=== PATIENT | male | born 1965 | race Caucasian/White ===

== ENCOUNTER → 2018-10-30 06:57 | Outpatient (CLI) | payer SELFPAY ==
--- NOTE | 2018-10-30 07:14 | CT_ITS ---
STUDY: CT MAXILLOFACIAL SINUSES REASON FOR EXAM: Male, 52 years old. Sinusitis left-sided unable to breathe out of left side of nose RADIATION DOSAGE (If Supplied By Facility): CTDIvol = ( 33.06 ) mGy, DLP = ( 771.87 ) mGycm TECHNIQUE: The patient was scanned in a multi detector CT scanner. High resolution axial imaging was performed without the administration of intravenous contrast material. Sagittal and coronal images were reconstructed. Individualized dose optimization techniques were used for this CT. COMPARISON: None. FINDINGS: Cervical, pharyngeal soft tissues unremarkable. Procedure Rn space soft tissues normal. Superficial facial soft tissues normal. Orbital contents normal. Cervical degenerative disc disease prominent at C4-C5, prominent right uncovertebral joint hypertrophy contributing to moderately severe right foraminal stenosis with risk of impingement upon the exiting right C5 nerve root. Correlate for any symptoms of cervical radiculopathy. Craniofacial osseous structures normal. Limited evaluation of the brain reveals no acute process. Right maxillary sinus: Normal. Sphenoid sinuses: Normal. Minimal mucoperiosteal thickening ethmoid sinuses and base of left frontal sinus. Right frontal sinus normal. Mucous retention cysts and mucoperiosteal thickening at the base of the left maxillary sinus. Mild mucoperiosteal thickening narrows the left maxillary sinus ostium. Mildly comparison thickening narrows the left frontal sinus ostium. There is mild leftward bowing and spurring of the nasal septum. This contributes to mild narrowing of the left nasal passage. Normal appearance of the turbinates. Mastoid air cells and middle ear cavities clear. CT/Sinus/Facial Bone IMPRESSION: Paranasal sinus disease affecting the left maxillary sinus and left frontal sinus with narrowing of the sinus ostia secondary to mucoperiosteal thickening. Leftward bowing and spurring of the nasal septum contributes to narrowing of the anterior 3rd of the left nasal passage. Narrowing of the passage and compression of the normal-appearing turbinates would limit breathing through the left nostril. Electronically Signed: David Saucedo MD at 9:42 EDT Tel , Service support ,
== END ==
PROVIDERS: Family Provider Family Medicine; PCP Family Medicine; Referring Provider Otolaryngology Otolaryngology/Facial Plastic Surgery; Visit Provider Otolaryngology Otolaryngology/Facial Plastic Surgery
DX: J32.9 Chronic sinusitis, unspecified (principal); J33.9 Nasal polyp, unspecified
CPT/HCPCS: 70486

== ENCOUNTER 2018-11-06 10:49 | Observation (INO) | payer SELFPAY ==
[2018-11-06 10:50] VITALS: BP 144/88; PULSE 119; RESP 18; TEMP 36.8; O2SAT 98; BMI 23.7
[2018-11-06 11:21] LABS: Hematocrit 37.8 % (40-54); Mean Corp Hgb Conc 34.4 g/gl (32-36); Mean Corpuscular Hgb 28.8 pg (27.0-32.0); Mean Corpuscular Volume 83.8 fL (80-94); Platelet Count 507 K/mm3 (150-450); RBC Distribution Width CV 12.3 % (11.6-14.6); RBC Distribution Width SD 36.9 fl (35.1-43.9); Red Blood Count 4.51 M/mm3 (4.6-6.2); Scan Indicated on CBC? Y/N NO; White Blood Count 19.8 K/mm3 (4.4-11.0)
[2018-11-06 11:38] LABS: ALB/GLOB Ratio 0.6 RATIO (0.9-2.4); AST(SGOT) 47 U/L (15-37); Alanine Aminotransfer ALT/SGPT 103 U/L (16-61); Albumin, Serum 2.7 g/dL (3.2-5.0); Alkaline Phosphatase 71 U/L (45-117); Anion Gap 8 (5-15); BUN 8 mg/dL (7-18); Calcium,Total 8.5 mg/dL (8.5-10.1); Chloride 89 mmol/L (98-107); EST Glomerular Filtration Rate 109 mL/min (>60); Est Glom Filt Rate - Afr Amer 132 mL/min (>60); Estimated Creatinine Clearance 117.66 ml/min; Globulin 4.9 g/dL (2.2-4.2); Glucose 125 mg/dL (74-106); Potassium 3.9 mmol/L (3.5-5.1); Protein, Total 7.6 g/dL (6.4-8.2); Sodium Level 127 mmol/L (136-145)
--- NOTE | 2018-11-06 12:11 | ED.VIS.GEN ---
History of Present Illness Chief Complaint: General Illness Informant: Patient Onset: Days - 4 Current Severity: Moderate Maximum Severity: Moderate Narrative: Patient presents with nasal pain, he has been on 2 antibiotics for nasal septal cellulitis and sinusitis. He has no chest pain shortness of breath fever or chills. He has had the cellulitis for a few weeks and just got treatment 4 days ago. Pain is mild to moderate, is worse at night. Past Medical History - Allergies and Home Meds Allergies/Adverse Reactions: Allergies No Known Allergies Allergy (Verified 11/06/18 11:03) Primary Care Physician: Ayden Portillo DO [Primary Care Provider] - Past Medical History: - - Hypertension Surgical History: noncontributory Smoking Status: Never smoker Review of Systems General: Denies: Fever Eyes: Denies: Visual changes - bilaterally ENT: Reports: - - As in HPI Cardiovascular: Denies: Chest pain Respiratory: Denies: Dyspnea Gastrointestinal: Denies: Abdominal pain, Nausea Skin: Reports: Rash Neurological: Denies: Weakness Psych: Denies: Depression Hematologic: Denies: Easy bruising Physical Exam Vital Signs/Narrative: Vital Signs Temp Pulse Resp BP Pulse Ox 11/06/18 10:50 98.2 F 119 H 18 144/88 H 98 General: Well nourished, Well developed ENT: Sinus tenderness, - - Patient has nasal septal enlargement, quite red Cardiovascular: Regular rate, Tachycardia Respiratory: No distress Abdomen: Soft Back: Nontender Extremities: No edema Skin: Normal color Neurological: Alert Psychological: Normal affect Diagnostic/Tx/Re-eval - Medical Decision Making Patient has leukocytosis, he is tachycardic I will admit antibiotics were started. Lactic acid is pending Admit stable condition ED Disposition - Plan for ED Patient: Referrals: Ayden Portillo DO [Primary Care Provider] -
[2018-11-06 12:38] VITALS: BP 151/86; PULSE 108; RESP 15
[2018-11-06 12:38] LABS: Lactic Acid 1.5 mmol/L (0.4-2.0)
[2018-11-06] MEDS: 0.9% Normal Saline 1,000 ML 999 ML IV ×3 (13:06→15:37)
[2018-11-06 13:39] VITALS: BMI 23.6
[2018-11-06 13:40] VITALS: BP 130/81; PULSE 100; RESP 18; TEMP 37.2; O2SAT 99
--- NOTE | 2018-11-06 14:07 | PCM.HP.STD ---
Problem List (1) Acute sinusitis Status: Acute History of Present Illness Date of Admission: 11/06/18 Chief Complaint: rhinorrhea The patient is a 52 year old M with no pmhx who presented to the ER with c/o rhinorrhea. He has been having sinus issues for 1 month. Initially he started having rinorrhea that was watery like tears with small amounts of blood. He has had increased pressure and a fever of 100 degrees at home. He went to his PCP and was placed on amoxicillin and pseudoephedrine. He took this for ten days with no relief, and then went to see Dr. Parker (ENT) who placed him on augmentin. He still has had no relief after 7 days of augmentin. In the ER he was found to be tachycardic with a WBC count of 19k. He was placed on IV clinda and admitted to the [facility] floor. ROS: no vision change, no headache, no cough, no hearing change or ear pain, no sore throat, no SOB, no nausea/vom/diarrhea. [] Past Medical History Allergies No Known Allergies Allergy (Verified 11/06/18 11:03) Home Medications: Ambulatory Orders Medication Instructions Recorded Amoxicillin/Potassium Clav 1 ea PO BID 11/06/18 [Augmentin 875-125 Tablet] Surgical History: noncontributory Psychiatric History: No pertinent psych hx Lives: Spouse/ Significant Other Smoking Status: Never smoker Tobacco Use: Non-smoker Alcohol: Rare Drugs: None Review of Systems Constitutional: Reports: Fever, Fatigue. Denies: Chills, Weight Change Eyes: Denies: Drainage, Vision Change HEENT: Reports: Nasal bleeding, Nasal Congestion, Sinus Congestion. Denies: Difficulty Hearing, Difficulty Swallowing, Hard of Hearing, Head Aches, Hearing Changes, Sinus Drainage, Sore Throat, Visual Changes Cardiovascular: Denies: Chest Pain, Palpitations Respiratory: Denies: Cough, Shortness of breath at rest, Sputum production Gastrointestinal: Denies: Abdominal Pain, Nausea, Vomiting Genitourinary: Denies: Dysuria Musculoskeletal: Denies: Joint Pain, Joint Tenderness Skin: Denies: Rash, Wounds Neurological: Denies: Numbness, Tingling, Focal weakness Psychiatric: Denies: Anxiety, Depression, Homicidal Ideations, Suicidal Ideations Hematologic/ Lymphatic: Denies: Easy Bruising, Easy Bleeding VTE Information - Inpt Only VTE Present on Admission: No VTE Mechan Device Prophylaxis: None VTE Pharm Prophylaxis ordered?: No Reason prophylaxis not ordered:: Procedure Not Indicated Patient Problems: Active and Suspected Problems Acute sinusitis (Acute) - Physical Exam General: Alert, Oriented x3, Cooperative HEENT: Atraumatic, PERRLA, EOMI, Normocephalic Neck: Supple, No JVD, Negative Carotid Bruits Lungs: Clear to auscultation, Normal air movement Cardiovascular: Regular rate, No murmurs Abdomen: Bowel Sounds Present, Soft, Non Tender Extremities: No edema, Capillary Refill Less than 3 Seconds Skin: No rashes, No breakdown Musculoskeletal: No Tenderness to Palpation of Joints or Extremities Neurological: Cranial nerves II-XII grossly intact Psych/Mental Status: Normal Affect, Appropriate Vital Signs Temp Pulse Resp BP Pulse Ox 98.9 F 100 18 130/81 H 99 11/06/18 13:40 11/06/18 13:40 11/06/18 13:40 11/06/18 13:40 11/06/18 13:40 Oxygen Delivery Method Room Air Weight: 169 lb 1.513 oz Body Mass Index (BMI) 23.6 Laboratory Tests Past 24 Hrs 11/06/18 11/06/18 11/06/18 11:18 11:18 12:10 WBC 19.8 H RBC 4.51 L Hgb 13.0 Hct 37.8 L MCV 83.8 MCH 28.8 MCHC 34.4 RDW 12.3 RDW Differential 36.9 Plt Count 507 H MPV 8.0 Sodium 127 L Potassium 3.9 Chloride 89 L Carbon Dioxide 30.0 Anion Gap 8 BUN 8 Creatinine 0.80 Estim Creat Clear Calc 117.66 Est GFR (MDRD) Af Amer 132 Est GFR (MDRD) Non-Af 109 BUN/Creatinine Ratio 10.0 Glucose 125 H Lactic Acid 1.5 Calcium 8.5 Total Bilirubin 0.50 AST 47 H ALT 103 H Alkaline Phosphatase 71 Total Protein 7.6 Albumin 2.7 L Globulin 4.9 H Albumin/Globulin Ratio 0.6 L Assessment/Plan All Active Problems Acute sinusitis (Acute) 1. Acute sinusitis with failed outpatient therapy - failed 10 days amoxicillin and 7 days of augmentin. No won IV clinda. Tachy and with high white count, but clinically the patient is not septic as his symptoms are mild and he appears completely nontoxic. MRSA swab nose. If no improvement c/s ENT for sinoscopy. -supportive care with mucinex, rhinocort, sudafed, netti-pot, tylenol, ibuprofen. DVT ppx: early ambulation DC planning: home tomorrow if improved with ENT f/u on Thursday - already has appt This patient was seen by Guille Richards PA-C under the supervision of Dr. Tapia.
[2018-11-06] MEDS: Fluticasone 0.05% 1 SPRAY NASAL.SRY NASAL (15:38)
[2018-11-06] MEDS: guaiFENesin 1,200 MG Tablet 1200 MG PO ×2 (15:39→22:13)
[2018-11-06] MEDS: Ibuprofen 400 MG Tablet PO ×2 (16:13→22:12)
[2018-11-06 18:02] VITALS: BP 134/80; PULSE 105; RESP 16; TEMP 37.2; O2SAT 97
[2018-11-06 18:27] LABS: M R Staph aureus DNA By PCR Negative (Negative); Probe Check PASS; Specimen Processing Control PASS
[2018-11-06 20:29] VITALS: BP 129/71; PULSE 105; RESP 18; TEMP 37.6; O2SAT 95
[2018-11-07] MEDS: Ibuprofen 400 MG Tablet PO ×3 (02:35→12:49)
[2018-11-07 02:42] VITALS: BP 105/67; PULSE 109; RESP 18; TEMP 37.3; O2SAT 96
[2018-11-07 06:32] LABS: Absolute Lymphocyte Count 0.91 X10^3/ul (0.83-4.51); Absolute Neutrophil Count 15.3 X10^3/uL (2.0-7.7); Basophil# 0.02 X10^3/uL; Basophil% 0.1 % (0-1); Eosinophil# 0.19 X10^3/uL; Hematocrit 33.9 % (40-54); Hemoglobin 11.3 g/dl (13.0-16.5); Lymphocyte # 0.91 X10^3/ul (4.0); Lymphocyte % 4.9 % (19-41); Mean Corp Hgb Conc 33.3 g/gl (32-36); Mean Corpuscular Hgb 28.6 pg (27.0-32.0); Mean Corpuscular Volume 85.8 fL (80-94); Mean Platelet Vol. 8.8 fl (6.2-12.0); Monocyte# 2.09 X10^3/uL; Monocyte% 11.2 % (0-10); Neutrophil # 15.28 X10^3/uL (2.7-7.7); Platelet Count 476 K/mm3 (150-450); RBC Distribution Width CV 12.4 % (11.6-14.6); RBC Distribution Width SD 38.3 fl (35.1-43.9); Red Blood Count 3.95 M/mm3 (4.6-6.2); White Blood Count 18.6 K/mm3 (4.4-11.0)
[2018-11-07 06:33] LABS: Differential Indicated SCAN CRITERIA MET; POSITIVE COUNT NO; POSITIVE DIFFERENTIAL YES; POSITIVE MORPHOLOGY NO
[2018-11-07 06:40] LABS: ALB/GLOB Ratio 0.5 RATIO (0.9-2.4); AST(SGOT) 69 U/L (15-37); Alanine Aminotransfer ALT/SGPT 116 U/L (16-61); Albumin, Serum 2.1 g/dL (3.2-5.0); Alkaline Phosphatase 68 U/L (45-117); Anion Gap 8 (5-15); BUN 7 mg/dL (7-18); BUN/Creat Ratio 9.6 RATIO (10-20); Calcium,Total 7.9 mg/dL (8.5-10.1); Chloride 93 mmol/L (98-107); Creatinine, Serum 0.73 mg/dL (0.70-1.30); EST Glomerular Filtration Rate 120 mL/min (>60); Est Glom Filt Rate - Afr Amer 146 mL/min (>60); Estimated Creatinine Clearance 128.94 ml/min; Globulin 4.1 g/dL (2.2-4.2); Glucose 131 mg/dL (74-106); Protein, Total 6.2 g/dL (6.4-8.2); Sodium Level 127 mmol/L (136-145)
[2018-11-07 07:47] VITALS: BP 120/80; PULSE 106; RESP 18; TEMP 36.8; O2SAT 97
[2018-11-07] MEDS: Fluticasone 0.05% 1 SPRAY NASAL.SRY NASAL (10:31)
[2018-11-07] MEDS: guaiFENesin 1,200 MG Tablet 1200 MG PO (10:31)
--- NOTE | 2018-11-07 11:23 | PCM.DC ---
- Discharge Diagnoses Current Active Problems: Current Active and Chronic Problems Acute sinusitis (Acute) You will use the following diet at home:: No restrictions, Other - avoid alcohol Your food should be the consistency of: Regular Your liquids should be the consistency of: Regular/Thin Discharge Activity: Return to Normal Activity Additional Instructions: Avoid tylenol/acetaminophen. Use NETIPOT or equivalent nasal flush daily. Follow instructions on packaging. Talk to your primary care physician about having your liver function test repeated. Allergies/Adverse Reactions: Allergies No Known Allergies Allergy (Verified 11/06/18 11:03) Medications to take at Discharge Cefdinir [Omnicef [equiv]] 300 mg PO Q12H #18 cap 11/07/18 Fluticasone 0.05% [Flonase Nasal [place]] 1 spray NASAL DAILY nasal.sry 11/07/18 Guaifenesin [Mucinex] 1,200 mg PO BID tablet 11/07/18 Ibuprofen [Motrin] 400 mg PO Q4H PRN PRN tablet 11/07/18 Menthol [Bengay Vanishing Scent] 1 applic TOPICAL TID PRN PRN tube 11/07/18 Pseudoephedrine [Sudafed] 30 mg PO Q6H PRN PRN tablet 11/07/18 The following prescriptions were given: Cefdinir [Omnicef [equiv]] 300 mg PO Q12H #18 cap Transmission Status: Pending to [facility]/pharmacy #[id number] Primary Care Physician: Ayden Portillo DO [Primary Care Provider] - Please follow up with your Primary Care Physician in: 1-2 weeks Test Results: Test results from this visit will be discussed in further detail at your follow-up appointment, if applicable. Please Follow Up With: Kameron Parker MD When: 11/08/2018 Proposed Discharge Date: 11/07/18
--- NOTE | 2018-11-07 11:46 | PCM.DC.SUM ---
Discharge Date and Diagnosis - Problem List Patient Problems: Active and Suspected Problems Acute sinusitis (Acute) Date of Admission: 11/06/18 Date of Discharge: 11/07/18 - Primary Discharge Diagnosis Active and Suspected Problems Acute sinusitis (Acute) with failed outpatient therapy elevated LFTs unclear etiology Hospital Course and Treatment Imaging Results: CT/Sinus/Facial Bone IMPRESSION: Paranasal sinus disease affecting the left maxillary sinus and left frontal sinus with narrowing of the sinus ostia secondary to mucoperiosteal thickening. Leftward bowing and spurring of the nasal septum contributes to narrowing of the anterior 3rd of the left nasal passage. Narrowing of the passage and compression of the normal-appearing turbinates would limit breathing through the left nostril. Operations: None Procedures: None Summary of Care Provided: Hospital Course: The patient is a 52 year old M with no significant past medical history who presented to the emergency room with complaints of a sinus infection that would not heal-symptoms primarily rhinorrhea and sinus pressure. He had been treating it for about 1 month-he initially had been placed on amoxicillin and Sudafed by his PCP and did not have any relief after 10 days of therapy. He then went to see Dr. Parker who placed him on Augmentin which he took for 7 more days with no relief. He came to the emergency room and was found to have an elevated white count of 19,000 and mild tachycardia. Also incidentally he had mild hyponatremia with sodium of 127 and mildly elevated LFTs with an AST of 47 and an ALT of 103-this is of unclear etiology. He had a CT scan of his sinuses as an outpatient-I have included the report above - which showed paranasal sinus disease affecting the left maxillary and left frontal sinus disease with some structural changes as noted above. Patient was admitted for observation to the medical surgical unit and started on intravenous clindamycin and for supportive care Mucinex, Sudafed, Flonase, ibuprofen, and Tylenol. The following morning the patient reported that his symptoms have vastly improved overnight with reduction in his rhinorrhea and sinus pressure. Furthermore he was able to breathe through his left nare which he had previously been unable to do. He had a nasal MRSA swab which was negative. He was transitioned to Omnicef and will complete 10 days of total antibiotic therapy. I have also advised him to continue the supportive care however to avoid Tylenol as we do not know why his LFTs are mildly increased. I advised him to have the LFTs rechecked as an outpatient. He has a follow-up appointment with ENT tomorrow morning and of it I have strongly advised him to keep this appointment. I have also instructed him on the use of [place] Yanez and advised him to use these horn equivalent daily. He was discharged home in stable condition. He will follow-up with his PCP in 1 to 2 weeks as well as with ENT as above. This patient was seen by Guille Richards PA-C under the supervision of Doctor Willie. [] Patient Problems: Active and Suspected Problems Acute sinusitis (Acute) - Physical Exam General: Alert, Oriented x3, Cooperative HEENT: Atraumatic, PERRLA, EOMI, Normocephalic Neck: Supple, No JVD, Negative Carotid Bruits Lungs: Clear to auscultation, Normal air movement Cardiovascular: Regular rate, No murmurs Abdomen: Bowel Sounds Present, Soft, Non Tender Extremities: No edema, Capillary Refill Less than 3 Seconds Skin: No rashes, No breakdown Musculoskeletal: No Tenderness to Palpation of Joints or Extremities Neurological: Cranial nerves II-XII grossly intact Psych/Mental Status: Normal Affect, Appropriate, Alert and oriented to time, place, person, mood and affect Vital Signs Temp Pulse Resp BP Pulse Ox 98.2 F 106 H 18 120/80 97 11/07/18 07:47 11/07/18 07:47 11/07/18 07:47 11/07/18 07:47 11/07/18 07:47 Oxygen Delivery Method Room Air Weight: 169 lb 1.513 oz Body Mass Index (BMI) 23.6 Intake and Output for Last 24 Hours 11/05/18 11/06/18 11/07/18 23:59 23:59 23:59 Intake Total 2625 / 2625 312 / 312 Balance 2625 / 2625 312 / 312 Laboratory Tests Past 24 Hrs 11/06/18 11/06/18 11/07/18 12:10 14:20 05:20 WBC 18.6 H RBC 3.95 L Hgb 11.3 L Hct 33.9 L MCV 85.8 MCH 28.6 MCHC 33.3 RDW 12.4 RDW Differential 38.3 Plt Count 476 H MPV 8.8 Immature Gran % (Auto) 0.800 Neut % (Auto) 82.0 H Lymph % (Auto) 4.9 L [place] % (Auto) 11.2 H Eos % (Auto) 1.0 Baso % (Auto) 0.1 Absolute Neuts (auto) 15.3 H Absolute Lymphs (auto) 0.91 Total Counted Not Reportable Diff Path Review May foll Sodium Potassium Chloride Carbon Dioxide Anion Gap BUN Creatinine Estim Creat Clear Calc Est GFR (MDRD) Af Amer Est GFR (MDRD) Non-Af BUN/Creatinine Ratio Glucose Lactic Acid 1.5 Calcium Total Bilirubin AST ALT Alkaline Phosphatase Total Protein Albumin Globulin Albumin/Globulin Ratio MRSA (PCR) Negative 11/07/18 05:20 WBC RBC Hgb Hct MCV MCH MCHC RDW RDW Differential Plt Count MPV Immature Gran % (Auto) Neut % (Auto) Lymph % (Auto) [place] % (Auto) Eos % (Auto) Baso % (Auto) Absolute Neuts (auto) Absolute Lymphs (auto) Total Counted Diff Path Review Sodium 127 L Potassium 4.0 Chloride 93 L Carbon Dioxide 26.0 Anion Gap 8 BUN 7 Creatinine 0.73 Estim Creat Clear Calc 128.94 Est GFR (MDRD) Af Amer 146 Est GFR (MDRD) Non-Af 120 BUN/Creatinine Ratio 9.6 L Glucose 131 H Lactic Acid Calcium 7.9 L Total Bilirubin 0.50 AST 69 H ALT 116 H Alkaline Phosphatase 68 Total Protein 6.2 L Albumin 2.1 L Globulin 4.1 Albumin/Globulin Ratio 0.5 L MRSA (PCR) Discharge Diet: No Restrictions Discharge Activity: Return to Normal Activity Home Medications: Medications to take at Discharge Cefdinir [Omnicef [equiv]] 300 mg PO Q12H #18 cap 11/07/18 Fluticasone 0.05% [Flonase Nasal [place]] 1 spray NASAL DAILY nasal.sry 11/07/18 Guaifenesin [Mucinex] 1,200 mg PO BID tab 11/07/18 Ibuprofen [Motrin] 400 mg PO Q4H PRN PRN tab 11/07/18 Menthol [Bengay Vanishing Scent] 1 applic TOPICAL TID PRN PRN tube 11/07/18 Pseudoephedrine [Sudafed] 30 mg PO Q6H PRN PRN tab 11/07/18 Following Prescrptions Were Given to Patient: Cefdinir [Omnicef [equiv]] 300 mg PO Q12H #18 cap Transmission Status: Received by [facility]/pharmacy #[id number] Primary Care Physician: Ayden Portillo DO [Primary Care Provider] - Please follow up with your Primary Care Physician in: 1-2 weeks Please Follow Up With: Kameron Parker MD When: 11/08/2018 Disposition: Home Minutes spent on discharge:: 35 Patient Condition:: Stable Medical Necessity - Tobacco Use Smoking Status: Never smoker Tobacco Use: Non-smoker Meaningful Use Info Meaningful Use Diagnoses (Choose all that apply): None applicable
[2018-11-07 12:57] VITALS: BP 128/70; PULSE 110; RESP 18; TEMP 37.1; O2SAT 96
[2018-11-08 15:01] LABS: Pathologist Review Reviewed
== END 2018-11-07 13:05 | disposition home or self-care (01) ==
LOC: ED 11:56 → MS3 13:19
PROVIDERS: Admitting Provider Internal Medicine; Emergency Provider Emergency Medicine; Family Provider Family Medicine; PCP Family Medicine; Visit Provider Internal Medicine
DX: J01.90 Acute sinusitis, unspecified (principal); R79.89 Other specified abnormal findings of blood chemistry; I10 Essential (primary) hypertension; E87.1 Hypo-osmolality and hyponatremia
CPT/HCPCS: 36415; 80053; 83605; 85025; 85027; 87641; 96361; 96365; 96366; 99218; 99283; J7030; J7050; G0378

== ENCOUNTER 2018-11-16 10:13 | Inpatient (IN) | payer SELFPAY ==
[2018-11-06 13:39] VITALS: BMI 23.6
[2018-11-16] VITALS (12 sets, daily range): BP systolic 121–138; BP diastolic 74–96; PULSE 111–138; RESP 16–28; TEMP 36.7–37.9; O2SAT 93–98; BMI 23.1; BMI 26.1
--- NOTE | 2018-11-16 10:39 | ED.VISSUMM ---
- ER Visit Summary Date of Service: 11/16/18 Chief Complaint: Weakness History of Present Illness: The patient is a 52 M who has had a weakness for the past week. He states he feels generally diffusely weak. This is happened ever since he left the hospital a week ago. He was admitted for nasal cellulitis. He had 1 day of IV antibiotics and was transitioned to oral antibiotics. He states he has trouble sleeping at night at home. Denies any slurred speech or facial droop. He just finished his antibiotics which was clindamycin today. He has had low-grade temperatures of 99 ?F at home. Physical Examination: Vital signs reviewed. HEENT exam unremarkable. There is no nasal cellulitis, swelling or abscess noted. Heart is regular rate and rhythm without murmurs. Lungs are clear to auscultation. Abdomen is soft and nontender. Extremities reveal no edema. Skin exam normal. Neurologic exam normal. Test Results: White blood cell count 31,400. Platelets 758. Sodium is 127 and chloride 93 which is unchanged from his admission last week. His liver enzymes are improving. He has positive nitrites in his urine but 0 white blood cells. Lactate is 2.0. CAT scan of head and sinuses shows minimal sinusitis which is improving. However, his chest x-ray does have a lingular infiltrate with effusion Emergency Department Course and Treatment: The patient was given IV fluids which helped with his tachycardia. He meets sepsis criteria with a new infiltrate in his lungs. I gave him Banken Zosyn for healthcare associated pneumonia. I discussed with the hospitalist for admission Treatment Plan: [] Disposition: Admit Impression: Healthcare associated pneumonia, sepsis, This note was generated with [employer] dictation software. It may contain incorrect words, spelling, and punctuation that were not noted in review of the chart prior to signing ED Disposition - Plan for ED Patient: Referrals: Ayden Portillo DO [Primary Care Provider] -
[2018-11-16 10:43] LABS: Bacteria 0 SEEN /hpf (None Seen); Mucous, Urine 0 SEEN /hpf (<or=2+); Red Blood Cells-Urine 0 SEEN /hpf (0-5); Squamous Epithelial Cells - UA 0 SEEN /hpf (0-5); White Blood Cells 0 SEEN /hpf (0-5)
[2018-11-16 11:12] LABS: Color, Urine Yellow (Yellow); Glucose, Dipstick NEGATIVE (Normal); Ketone-Dipstick 5 mg/dl (Negative); Leukocyte Esterase-Dipstick 25 /ul (Negative); Nitrite-Dipstick Positive (Negative); Occult Blood-Urine 150 /ul (Negative); Protein-Dipstick 30 mg/dl (Negative); Urine Bilirubin Dipstick Negative (Negative); Urine Clarity Clear (Clear); Urine Urobilinogen 1 mg/dl (Normal)
[2018-11-16] MEDS: 0.9% Normal Saline 1,000 ML 1000 ML IV (11:19)
[2018-11-16 11:50] LABS: Absolute Lymphocyte Count 1.06 X10^3/uL (0.83-4.51); Basophil# 0.09 X10^3/uL; Basophil% 0.3 % (0-1); Hemoglobin 13.7 g/dL (13.0-16.5); Lymphocyte # 1.06 X10^3/ul (4.0); Lymphocyte % 3.4 % (19-41); Mean Corp Hgb Conc 33.4 g/dL (32-36); Mean Corpuscular Volume 86.9 fL (80-94); Mean Platelet Vol. 8.8 fl (6.2-12.0); Monocyte# 2.16 X10^3/uL; Monocyte% 6.9 % (0-10); NRBC Flagged by Analyzer 0 % (0-5); Neutrophil # 27.45 X10^3/uL (2.7-7.7); Neutrophil % 87.3 % (47-70); POSITIVE COUNT YES; POSITIVE DIFFERENTIAL YES; Platelet Count 758 K/mm3 (150-450); RBC Distribution Width CV 13.2 % (11.6-14.6); RBC Distribution Width SD 41.7 fl (35.1-43.9); Red Blood Count 4.72 M/mm3 (4.6-6.2); White Blood Count 31.4 K/mm3 (4.4-11.0)
[2018-11-16 12:02] LABS: AST(SGOT) 29 U/L (15-37); Alanine Aminotransfer ALT/SGPT 124 U/L (16-61); Albumin, Serum 2.3 g/dL (3.2-5.0); Alkaline Phosphatase 129 U/L (45-117); Anion Gap 5 (5-15); BUN 11 mg/dL (7-18); BUN/Creat Ratio 12.9 RATIO (10-20); Calcium,Total 8.7 mg/dL (8.5-10.1); Chloride 93 mmol/L (98-107); Creatinine, Serum 0.85 mg/dL (0.70-1.30); EST Glomerular Filtration Rate 101 mL/min (>60); Est Glom Filt Rate - Afr Amer 122 mL/min (>60); Estimated Creatinine Clearance 107.35 ml/min; Globulin 5.6 g/dL (2.2-4.2); Glucose 145 mg/dL (74-106); Potassium 4.2 mmol/L (3.5-5.1); Protein, Total 7.9 g/dL (6.4-8.2); Sodium Level 127 mmol/L (136-145)
--- NOTE | 2018-11-16 12:25 | ED.RN ---
1219 lab called lactic acid of 2.0 Dr Ennis aware
--- NOTE | 2018-11-16 12:44 | ED.RN ---
LAB CALLED WITH CRITICAL WBC AND PLATELETS.
[2018-11-16 12:45] LABS: Differential Indicated SCAN CRITERIA MET
[2018-11-16 12:52] LABS: Platelet Estimate MKD INC (ADEQ)
[2018-11-16 12:54] LABS: Platelet Morphology LARGE; Polychromasia 1+
[2018-11-16 12:55] LABS: Anisocytosis 1+
--- NOTE | 2018-11-16 12:55 | RAD_ITS ---
STUDY: X-RAY CHEST REASON FOR EXAM: Male, 52 years old. General weakness, cough TECHNIQUE: PA and lateral views of the chest. COMPARISON: None. FINDINGS: EKG leads overlie the chest Right lung is clear. Left lung shows lingular opacification with air bronchograms noted posterior to the heart suggesting infiltrate. Small left pleural effusion as well. Follow-up recommended to assure resolution Borderline cardiomegaly. Normal mediastinum and zeynep. Normal visualized pulmonary arteries. Normal visualized aortic arch and descending thoracic aorta. Normal visualized thoracic spine. Normal visualized ribs, clavicles, and shoulders. There is no demonstrated abnormality of the visualized soft tissue structures of the upper abdomen. RAD/Chest PA and Lateral IMPRESSION: Lingular infiltrate with effusion. Follow-up recommended to assure resolution Electronically Signed: Brenden Gan MD at 13:36 EDT , Service support ,
--- NOTE | 2018-11-16 12:57 | CT_ITS ---
STUDY: CT PARANASAL SINUSES WITH CONTRAST REASON FOR EXAM: Male, 52 years old. RADIATION DOSAGE (If Supplied By Facility): CTDIvol = ( 29.38 ) mGy, DLP = ( 547.46 ) mGycm TECHNIQUE: The patient was scanned in a multi-detector CT scanner. High resolution transaxial imaging was performed following the intravenous administration of 100ML IV Isovue 300. Sagittal and coronal images were reconstructed. Individualized dose optimization techniques were used for this CT. COMPARISON: None. FINDINGS: FRONTAL SINUSES: Normal development and aeration of the bilateral frontal sinuses without mucosal inflammatory disease. ETHMOIDAL SINUSES: Normal development and aeration of the bilateral ethmoidal air cells without mucosal inflammatory disease. MAXILLARY SINUSES: Normal development and aeration of the bilateral maxillary antra with minimal mucosal inflammatory disease in the left maxillary sinus. SPHENOIDAL SINUSES: Normal aeration of the bilateral sphenoid sinuses and there is no mucosal inflammatory disease. OMU: Normal aeration of the bilateral maxillary infundibulum. Normal uncinate process, ethmoid bulla, and hiatus semilunaris. MIDDLE TURBINATES: Normal bilateral middle turbinates without a jillian bullosa or paradoxical curvature. INFERIOR TURBINATES: Normal bilateral inferior turbinates. NASAL SEPTUM: Normal midline nasal septum and there is no nasal septal mass lesions, deviation or spur. Normal anterior cranial fossa, mukund jim and cribriform plate. Normal bilateral orbital contents. Normal nasopharynx without adenoidal pad hypertrophy, or a posterior nasopharyngeal retention cyst. There is no demonstrated enhancing soft tissue or osseous abnormality. CT/Sinus/Facial Bone WITH Contras IMPRESSION: Minimal left maxillary sinusitis Electronically Signed: Brenden Gan MD at 13:41 EDT , Service support ,
--- NOTE | 2018-11-16 12:57 | CT_ITS ---
STUDY: CT BRAIN WITHOUT CONTRAST REASON FOR EXAM: Male, 52 years old. Facial pain RADIATION DOSAGE (If Supplied By Facility): CTDIvol = ( 44.99 ) mGy, DLP = ( 762.36 ) mGycm TECHNIQUE: Transaxial CT imaging of the brain was performed without administration of intravenous contrast material. Individualized dose optimization techniques were used for this CT. COMPARISON: No relevant priors. FINDINGS: Normal soft tissue structures. Normal calvarium. Normal size ventricles and extra-axial spaces for the patient's age. Normal white matter tracts of the cerebral hemispheres. Normal basal ganglia and thalami. Normal brainstem. Normal cerebellum. There is no intracranial hemorrhage. There are no findings of an acute ischemic infarction. Normal visualized paranasal sinuses. CT/Brain/Head without Contrast IMPRESSION: Normal unenhanced CT scan of the brain. Electronically Signed: Brenden Gan MD at 13:37 EDT , Service support ,
--- NOTE | 2018-11-16 14:08 | NURSING ---
MED SURG [facility] HCAP, SEPSIS
[2018-11-16] MEDS: Vancomycin IV 1,000 MG/200 ML BAG 200 MG IV (14:57)
--- NOTE | 2018-11-16 14:57 | HP.PCM_ITS ---
<Cailin Fields - Last Filed: 11/16/18 16:17> Problem List (1) Acute sinusitis Status: Resolved History of Present Illness Date of Admission: 11/16/18 Chief Complaint: Weakness. The patient is a 52 year old M who presents the emergency room due to weakness. Patient recently discharged 11/07/2018 after being treated for acute sinusitis which failed outpatient therapy. He was discharged at that time on Omnicef for 10 days. He is to follow-up with ENT at discharge. Patient reports since being discharged, he has had increased weakness and general malaise. He reports he has also developed shortness of breath, fever, chills. Denies significant cough. Denies postnasal drainage. Reports his sinus pressure and drainage has improved and he is now breathing without difficulty through his nose. He reports poor oral intake. Denies nausea, vomiting. Reports some loose stools however denies diarrhea. Patient reports prior to recent sinusitis he has not had significant issues with recurrent sinusitis or recurrent upper respiratory infections. He denies any past medical history or surgical history. Past Medical History Allergies No Known Allergies Allergy (Verified 11/06/18 11:03) Home Medications: Ambulatory Orders Medication Instructions Recorded Ibuprofen [Motrin] 400 mg PO Q4H PRN PRN tab 11/07/18 Pseudoephedrine [Sudafed] 30 mg PO Q6H PRN PRN tab 11/07/18 Multivitamin [Multivitamins] 1 ea PO DAILY 11/16/18 Surgical History: noncontributory Psychiatric History: No pertinent psych hx Lives: Spouse/ Significant Other Smoking Status: Never smoker Alcohol: None Drugs: None - *Family History Maternal History Items: Hypertension Paternal History Items: - - prostate cancer Review of Systems Constitutional: Reports: Chills, Fever, Malaise, Weakness, - - Poor appetite HEENT: Denies: Head Aches, Post Nasal Drip, Sinus Congestion, Sinus Drainage, Sore Throat Cardiovascular: Denies: Chest Pain, Edema, Light Headedness, Palpitations, Syncope Respiratory: Reports: Shortness of Breath. Denies: Sputum production, Wheezing Gastrointestinal: Denies: Abdominal Pain, Nausea, Vomiting Genitourinary: Denies: Dysuria Musculoskeletal: Denies: Joint Pain, Joint Tenderness Skin: Denies: Rash, Wounds Neurological: Denies: Numbness, Tingling, Focal weakness Psychiatric: Denies: Anxiety, Depression, Homicidal Ideations, Suicidal Ideations Hematologic/ Lymphatic: Denies: Easy Bruising, Easy Bleeding VTE Information - Inpt Only VTE Present on Admission: No VTE Mechan Device Prophylaxis: None VTE Pharm Prophylaxis ordered?: Yes - Physical Exam General: Alert, Oriented x3, Cooperative HEENT: Atraumatic, PERRLA, EOMI, Normocephalic Neck: Supple, No JVD, Negative Carotid Bruits Lungs: Diminished, - - Faint fine crackles BL bases. Cardiovascular: Regular Rhythm, Normal S1, Normal S2, No murmurs, Tachycardic Abdomen: Bowel Sounds Present, Soft, Non Tender, Non-Distended Extremities: No clubbing, No cyanosis, No edema, Capillary Refill Less than 3 Seconds Skin: No rashes, No breakdown Musculoskeletal: No Tenderness to Palpation of Joints or Extremities Neurological: Cranial nerves II-XII grossly intact, Neuro grossly intact Psych/Mental Status: Normal Affect, Appropriate Vital Signs Temp Pulse Resp BP Pulse Ox 100.2 F H 120 H 28 H 136/94 H 96 11/16/18 12:30 11/16/18 12:59 11/16/18 12:59 11/16/18 12:59 11/16/18 12:59 Oxygen Delivery Method Room Air Weight: 161 lb 3.2 oz Body Mass Index (BMI) 23.1 Laboratory Tests Past 24 Hrs 11/16/18 11/16/18 11/16/18 10:35 11:30 11:30 WBC 31.4 H* RBC 4.72 Hgb 13.7 Hct 41.0 MCV 86.9 MCH 29.0 MCHC 33.4 RDW Std Deviation 41.7 RDW Coeff of Talia 13.2 Plt Count 758 H* MPV 8.8 Immature Gran % (Auto) 2.100 H Neut % (Auto) 87.3 H Lymph % (Auto) 3.4 L [place] % (Auto) 6.9 Eos % (Auto) 0.0 Baso % (Auto) 0.3 Absolute Neuts (auto) Not Reportable Absolute Lymphs (auto) 1.06 Absolute Nucleated RBC 0.00 Nucleated RBC % 0 Diff Path Review May foll Platelet Estimate MKD INC Plt Morphology Comment LARGE Polychromasia 1+ Anisocytosis 1+ Sodium 127 L Potassium 4.2 Chloride 93 L Carbon Dioxide 29.0 Anion Gap 5 BUN 11 Creatinine 0.85 Estim Creat Clear Calc 107.35 Est GFR (MDRD) Af Amer 122 Est GFR (MDRD) Non-Af 101 BUN/Creatinine Ratio 12.9 Glucose 145 H Lactic Acid Calcium 8.7 Total Bilirubin 0.90 Direct Bilirubin 0.30 AST 29 ALT 124 H Alkaline Phosphatase 129 H Troponin I < 0.015 Total Protein 7.9 Albumin 2.3 L Globulin 5.6 H Urine Color Yellow Urine Clarity Clear Urine pH 6.0 Ur Specific [place] 1.020 Urine Protein 30 H Urine Glucose (UA) NEGATIVE Urine Ketones 5 H Urine Occult Blood 150 H Urine Nitrite Positive H Urine Bilirubin Negative Urine Urobilinogen 1 H Ur Leukocyte Esterase 25 H Urine RBC 0 SEEN Urine WBC 0 SEEN Ur Squamous Epith Cells 0 SEEN Urine Bacteria 0 SEEN Urine Mucus 0 SEEN 11/16/18 11:30 WBC RBC Hgb Hct MCV MCH MCHC RDW Std Deviation RDW Coeff of Talia Plt Count MPV Immature Gran % (Auto) Neut % (Auto) Lymph % (Auto) [place] % (Auto) Eos % (Auto) Baso % (Auto) Absolute Neuts (auto) Absolute Lymphs (auto) Absolute Nucleated RBC Nucleated RBC % Diff Path Review Platelet Estimate Plt Morphology Comment Polychromasia Anisocytosis Sodium Potassium Chloride Carbon Dioxide Anion Gap BUN Creatinine Estim Creat Clear Calc Est GFR (MDRD) Af Amer Est GFR (MDRD) Non-Af BUN/Creatinine Ratio Glucose Lactic Acid 2.0 Calcium Total Bilirubin Direct Bilirubin AST ALT Alkaline Phosphatase Troponin I Total Protein Albumin Globulin Urine Color Urine Clarity Urine pH Ur Specific [place] Urine Protein Urine Glucose (UA) Urine Ketones Urine Occult Blood Urine Nitrite Urine Bilirubin Urine Urobilinogen Ur Leukocyte Esterase Urine RBC Urine WBC Ur Squamous Epith Cells Urine Bacteria Urine Mucus Assessment/Plan All Active Problems Acute sinusitis (Resolved) 1. Acute sepsis secondary to presumed HCAP-(WBC 31, tachycardic, tachypneic) c hest x-ray admission with lingular infiltrate with effusion. Patient recently discharged 11/07/2018 after being treated for acute sinusitis which failed outpatient therapy. He was discharged at that time on Omnicef for [address] normal. Facial and sinus CT showed minimal left maxillary sinusitis. IV Zosyn. Infectious disease consult given persistent, recurrent infection. Send sputum for cx. Albuterol and DuoNeb aerosol. 2. Hyponatremia-sodium 127 which is same as his recent admission. IV fluids. If sodium does not improve with hydration, may need further work-up. 3. Thrombocytosis-possibly reactive secondary to #1. 4. Elevated glucose-suspect stress response related to #1. Complete hemoglobin A1C. DVT prophylaxis-Lovenox subcu This patient was seen by DENNYS Coughlin under the supervision of Dr. Plaza. <Husam Plaza - Last Filed: 11/16/18 17:20> History of Present Illness The patient is a 52 year old M who was just discharged on 11/07/2018 after treatment for nasal cellulitis with acute sinusitis. Patient has been on antibiotic for almost 3 weeks. At home since discharge, he has been feeling unusually weak, malaise not able to do his usual activity. Usually is very active and does not have comorbidities. Patient states getting short of breath on exertion otherwise no cough, sputum, URI symptoms including headache. Patient does not have any redness or or pain over nasal area. [] In ED, he was found to have significant leukocytosis 21,000 with neutrophil 87%, lymphocyte 3.4%. Platelet count 7 58,000. Past Medical History Allergies No Known Allergies Allergy (Verified 11/06/18 11:03) Review of Systems Constitutional: Reports: -. Denies: Chills, Fever Respiratory: Reports: Shortness of Breath, Shortness of breath upon exertion VTE Information - Inpt Only VTE Mechan Device Prophylaxis: None VTE Pharm Prophylaxis ordered?: Yes - Physical Exam General: Alert, Oriented x3, Cooperative HEENT: Atraumatic, PERRLA, EOMI, Normocephalic Neck: Supple, No JVD, Negative Carotid Bruits Lungs: Clear to auscultation, Normal air movement, Diminished - Air entry diminished in bilateral lung bases., Rales, - Cardiovascular: Regular Rhythm, Normal S1, Normal S2, No murmurs, Tachycardic Abdomen: Bowel Sounds Present, Soft, Non Tender, Non-Distended Extremities: No edema, Capillary Refill Less than 3 Seconds Skin: No rashes, No breakdown Musculoskeletal: No Tenderness to Palpation of Joints or Extremities Lymphatic: No Cervical, Supraclavicular, or Inguinal Adenopathy Neurological: Cranial nerves II-XII grossly intact, Deep Tendon Reflexes 2+/4 and Symmetrical, Neuro grossly intact, Motor Exam 5/5 strength throughout Psych/Mental Status: Normal Affect, Appropriate Vital Signs Temp Pulse Resp BP Pulse Ox 100 F H 112 H 18 130/84 H 98 11/16/18 15:41 11/16/18 15:55 11/16/18 15:41 11/16/18 15:41 11/16/18 15:41 Oxygen Delivery Method Room Air Weight: 182 lb 1.629 oz Body Mass Index (BMI) 26.1 Laboratory Tests Past 24 Hrs 11/16/18 11/16/18 11/16/18 10:35 11:30 11:30 WBC 31.4 H* RBC 4.72 Hgb 13.7 Hct 41.0 MCV 86.9 MCH 29.0 MCHC 33.4 RDW Std Deviation 41.7 RDW Coeff of Talia 13.2 Plt Count 758 H* MPV 8.8 Immature Gran % (Auto) 2.100 H Neut % (Auto) 87.3 H Lymph % (Auto) 3.4 L [place] % (Auto) 6.9 Eos % (Auto) 0.0 Baso % (Auto) 0.3 Absolute Neuts (auto) Not Reportable Absolute Lymphs (auto) 1.06 Absolute Nucleated RBC 0.00 Nucleated RBC % 0 Diff Path Review May foll Platelet Estimate MKD INC Plt Morphology Comment LARGE Polychromasia 1+ Anisocytosis 1+ Sodium 127 L Potassium 4.2 Chloride 93 L Carbon Dioxide 29.0 Anion Gap 5 BUN 11 Creatinine 0.85 Estim Creat Clear Calc 107.35 Est GFR (MDRD) Af Amer 122 Est GFR (MDRD) Non-Af 101 BUN/Creatinine Ratio 12.9 Glucose 145 H Hemoglobin A1c Lactic Acid Calcium 8.7 Total Bilirubin 0.90 Direct Bilirubin 0.30 AST 29 ALT 124 H Alkaline Phosphatase 129 H Troponin I < 0.015 Total Protein 7.9 Albumin 2.3 L Globulin 5.6 H Urine Color Yellow Urine Clarity Clear Urine pH 6.0 Ur Specific [place] 1.020 Urine Protein 30 H Urine Glucose (UA) NEGATIVE Urine Ketones 5 H Urine Occult Blood 150 H Urine Nitrite Positive H Urine Bilirubin Negative Urine Urobilinogen 1 H Ur Leukocyte Esterase 25 H Urine RBC 0 SEEN Urine WBC 0 SEEN Ur Squamous Epith Cells 0 SEEN Urine Bacteria 0 SEEN Urine Mucus 0 SEEN 07/23/19 07/23/19 07/23/19 11:30 11:30 16:05 WBC RBC Hgb Hct MCV MCH MCHC RDW Std Deviation RDW Coeff of Talia Plt Count MPV Immature Gran % (Auto) Neut % (Auto) Lymph % (Auto) [place] % (Auto) Eos % (Auto) Baso % (Auto) Absolute Neuts (auto) Absolute Lymphs (auto) Absolute Nucleated RBC Nucleated RBC % Diff Path Review Platelet Estimate Plt Morphology Comment Polychromasia Anisocytosis Sodium Potassium Chloride Carbon Dioxide Anion Gap BUN Creatinine Estim Creat Clear Calc Est GFR (MDRD) Af Amer Est GFR (MDRD) Non-Af BUN/Creatinine Ratio Glucose Hemoglobin A1c 6.0 Lactic Acid 2.0 2.2 H Calcium Total Bilirubin Direct Bilirubin AST ALT Alkaline Phosphatase Troponin I Total Protein Albumin Globulin Urine Color Urine Clarity Urine pH Ur Specific [place] Urine Protein Urine Glucose (UA) Urine Ketones Urine Occult Blood Urine Nitrite Urine Bilirubin Urine Urobilinogen Ur Leukocyte Esterase Urine RBC Urine WBC Ur Squamous Epith Cells Urine Bacteria Urine Mucus Assessment/Plan This patient was seen in conjunction with CARD PUNCHERCailin. I have independently interviewed and examined the patient and reviewed pertinent history, examination findings, laboratory and plan of management. I have reviewed the note and agree with the documented findings with the few additional points. In brief, patient is admitted for acute sepsis, sinus tachycardia, tachypnea, lactic acidosis 2.2, leukocytosis with left shift along with chest x-ray finding of left midlung infiltrate with effusion suggestive of left lingular care associated pneumonia. Patient CT facial and sinus shows minimal left lingular sinusitis. CT brain normal. Started on IV Zosyn. MRSA nasal screen was negative on 11/06/2018. ID consult as patient has been on antibiotics for 3 weeks and still got pneumonia. Mild hyponatremia: IV fluid normal saline. I have discussed my assessment with Cailin GARLAND and orders have been reviewed. Code Visit Inpatient E&M: 73414 Init Hosp L3
--- NOTE | 2018-11-16 15:37 | NURSING ---
Entered room at this time- found IV running but disconnected and laying of floor-- vancomycin was running. Cailin Fields POOL MANAGER in at this time and notified of same. Ordered IV tubing to be changed and to restart as is.
[2018-11-16 15:41] LABS: Reflex Lactate? Y
[2018-11-16] MEDS: 0.9% Normal Saline 1,000 ML 150 ML IV ×2 (16:39→22:58)
[2018-11-16 16:46] LABS: Lactic Acid 2.2 mmol/L (0.4-2.0)
[2018-11-16] MEDS: Ipratropium/Albuterol Sulfate 3 ML AMPUL.NEB INHALATION (19:10)
[2018-11-16] MEDS: guaiFENesin 1,200 MG Tablet 1200 MG PO (21:49)
[2018-11-16] MEDS: Zolpidem Tartrate 5 MG Tablet PO (21:49)
[2018-11-17] VITALS (11 sets, daily range): BP systolic 114–152; BP diastolic 76–95; PULSE 81–124; RESP 16–18; TEMP 36.9–38.2; O2SAT 93–96
[2018-11-17] MEDS: 0.9% Normal Saline 1,000 ML 150 ML IV ×2 (05:36→12:52)
[2018-11-17 06:05] LABS: Basophil# 0.07 X10^3/uL; Basophil% 0.4 % (0-1); Eosinophil# 0.03 X10^3/uL; Eosinophils% 0.2 % (0-5); Hematocrit 34.4 % (40-54); Hemoglobin 11.2 g/dL (13.0-16.5); Lymphocyte # 1.25 X10^3/ul (4.0); Lymphocyte % 6.3 % (19-41); Mean Corp Hgb Conc 32.6 g/dL (32-36); Mean Corpuscular Hgb 28.7 pg (27.0-32.0); Mean Corpuscular Volume 88.2 fL (80-94); Mean Platelet Vol. 7.7 fl (6.2-12.0); Monocyte# 1.57 X10^3/uL; NRBC Flagged by Analyzer 0 % (0-5); Neutrophil # 16.44 X10^3/uL (2.7-7.7); Neutrophil % 83.2 % (47-70); POSITIVE DIFFERENTIAL YES; Platelet Count 595 K/mm3 (150-450); RBC Distribution Width CV 13.4 % (11.6-14.6); RBC Distribution Width SD 43.3 fl (35.1-43.9); White Blood Count 19.7 K/mm3 (4.4-11.0)
[2018-11-17 06:22] LABS: Anion Gap 7 (5-15); BUN 10 mg/dL (7-18); Calcium,Total 8.2 mg/dL (8.5-10.1); Chloride 99 mmol/L (98-107); Creatinine, Serum 0.83 mg/dL (0.70-1.30); EST Glomerular Filtration Rate 103 mL/min (>60); Est Glom Filt Rate - Afr Amer 125 mL/min (>60); Estimated Creatinine Clearance 109.94 ml/min; Glucose 112 mg/dL (74-106); Potassium 4.2 mmol/L (3.5-5.1); Sodium Level 134 mmol/L (136-145)
[2018-11-17 06:27] LABS: Differential Indicated SCAN CRITERIA MET
[2018-11-17] MEDS: Enoxaparin 40 MG/0.4 ML Syringe SC (06:28)
[2018-11-17 07:02] LABS: Differential Comment SCANNED; Toxic Granulation 2+
[2018-11-17 07:03] LABS: Platelet Estimate SLT INC (ADEQ)
[2018-11-17] MEDS: Ipratropium/Albuterol Sulfate 3 ML AMPUL.NEB INHALATION ×5 (07:07→23:28)
[2018-11-17] MEDS: guaiFENesin 1,200 MG Tablet 1200 MG PO ×2 (09:39→22:06)
[2018-11-17 09:43] LABS: Pathologist Review Reviewed
--- NOTE | 2018-11-17 11:15 | CASEMGMT ---
Social Work Note Pt is listed as having [facility] Package plan. Cinthya Aleman ROSIN BARREL FILLER, NUTRITIONAL CHEMIST
--- NOTE | 2018-11-17 12:06 | PCM.HP.ID ---
Problem List (1) Severe sepsis Status: Acute Reason for Consult: pneumonia Consulted by: Dr. Tapia History of Present Illness: The patient is a 52 year old M, recently admitted for sinusitis. Had been on several weeks of abx prior to that point, discharged on omnicef. Never had much headache, but did c/o congestion. Sent home on omnicef. Had progressive weakness, SOB, dry cough. Minimal fever/chills. No myalgias. Had some chest soreness with coughing. Came to ED, started on zosyn for CAP, feeling better this AM. Full ROS Performed and neg except as noted above. - Medical History Allergies/Adverse Reactions: Allergies No Known Allergies Allergy (Verified 11/06/18 11:03) Home Medications: Ambulatory Orders Medication Instructions Recorded Ibuprofen [Motrin] 400 mg PO Q4H PRN PRN tab 11/07/18 Pseudoephedrine [Sudafed] 30 mg PO Q6H PRN PRN tab 11/07/18 Multivitamin [Multivitamins] 1 ea PO DAILY 11/16/18 - Social History Tobacco Use: non-smoker Vital Signs Temp Pulse Resp BP Pulse Ox 100.0 F H 92 18 130/80 H 93 11/17/18 08:05 11/17/18 11:02 11/17/18 11:02 11/17/18 08:05 11/17/18 08:05 Oxygen Delivery Method Room Air Weight: 82.6 kg Body Mass Index (BMI) 26.1 Microbiology Past 72 Hours 11/16/18 16:20 Gram Stain - Final Sputum, Expectorated/Coughed 11/16/18 17:30 Legionella Antigen - Final Urine, Random Streptococcus pneumoniae Antigen (M - Final Laboratory Tests Past 24 Hrs 11/16/18 11/16/18 11/16/18 10:35 11:30 11:30 WBC 31.4 H* RBC 4.72 Hgb 13.7 Hct 41.0 MCV 86.9 MCH 29.0 MCHC 33.4 RDW Std Deviation 41.7 RDW Coeff of Talia 13.2 Plt Count 758 H* MPV 8.8 Immature Gran % (Auto) 2.100 H Neut % (Auto) 87.3 H Lymph % (Auto) 3.4 L [place] % (Auto) 6.9 Eos % (Auto) 0.0 Baso % (Auto) 0.3 Absolute Neuts (auto) Not Reportable Absolute Lymphs (auto) 1.06 Absolute Nucleated RBC 0.00 Nucleated RBC % 0 Differential Comment Diff Path Review Reviewed Toxic Granulation Platelet Estimate MKD INC Plt Morphology Comment LARGE Polychromasia 1+ Anisocytosis 1+ Sodium Potassium Chloride Carbon Dioxide Anion Gap BUN Creatinine Estim Creat Clear Calc Est GFR (MDRD) Af Amer Est GFR (MDRD) Non-Af BUN/Creatinine Ratio Glucose Hemoglobin A1c Lactic Acid 2.0 Calcium Urine Color Yellow Urine Clarity Clear Urine pH 6.0 Ur Specific [place] 1.020 Urine Protein 30 H Urine Glucose (UA) NEGATIVE Urine Ketones 5 H Urine Occult Blood 150 H Urine Nitrite Positive H Urine Bilirubin Negative Urine Urobilinogen 1 H Ur Leukocyte Esterase 25 H Urine RBC 0 SEEN Urine WBC 0 SEEN Ur Squamous Epith Cells 0 SEEN Urine Bacteria 0 SEEN Urine Mucus 0 SEEN 11/16/18 11/16/18 11/17/18 11:30 16:05 05:54 WBC 19.7 H RBC 3.90 L Hgb 11.2 L Hct 34.4 L MCV 88.2 MCH 28.7 MCHC 32.6 RDW Std Deviation 43.3 RDW Coeff of Talia 13.4 Plt Count 595 H MPV 7.7 Immature Gran % (Auto) 1.900 H Neut % (Auto) 83.2 H Lymph % (Auto) 6.3 L [place] % (Auto) 8.0 Eos % (Auto) 0.2 Baso % (Auto) 0.4 Absolute Neuts (auto) Not Reportable Absolute Lymphs (auto) Absolute Nucleated RBC 0.00 Nucleated RBC % 0 Differential Comment SCANNED Diff Path Review May foll Toxic Granulation 2+ Platelet Estimate SLT INC Plt Morphology Comment Polychromasia Anisocytosis Sodium Potassium Chloride Carbon Dioxide Anion Gap BUN Creatinine Estim Creat Clear Calc Est GFR (MDRD) Af Amer Est GFR (MDRD) Non-Af BUN/Creatinine Ratio Glucose Hemoglobin A1c 6.0 Lactic Acid 2.2 H Calcium Urine Color Urine Clarity Urine pH Ur Specific [place] Urine Protein Urine Glucose (UA) Urine Ketones Urine Occult Blood Urine Nitrite Urine Bilirubin Urine Urobilinogen Ur Leukocyte Esterase Urine RBC Urine WBC Ur Squamous Epith Cells Urine Bacteria Urine Mucus 11/17/18 05:54 WBC RBC Hgb Hct MCV MCH MCHC RDW Std Deviation RDW Coeff of Talia Plt Count MPV Immature Gran % (Auto) Neut % (Auto) Lymph % (Auto) [place] % (Auto) Eos % (Auto) Baso % (Auto) Absolute Neuts (auto) Absolute Lymphs (auto) Absolute Nucleated RBC Nucleated RBC % Differential Comment Diff Path Review Toxic Granulation Platelet Estimate Plt Morphology Comment Polychromasia Anisocytosis Sodium 134 L Potassium 4.2 Chloride 99 Carbon Dioxide 28.0 Anion Gap 7 BUN 10 Creatinine 0.83 Estim Creat Clear Calc 109.94 Est GFR (MDRD) Af Amer 125 Est GFR (MDRD) Non-Af 103 BUN/Creatinine Ratio 12.0 Glucose 112 H Hemoglobin A1c Lactic Acid Calcium 8.2 L Urine Color Urine Clarity Urine pH Ur Specific [place] Urine Protein Urine Glucose (UA) Urine Ketones Urine Occult Blood Urine Nitrite Urine Bilirubin Urine Urobilinogen Ur Leukocyte Esterase Urine RBC Urine WBC Ur Squamous Epith Cells Urine Bacteria Urine Mucus - Other Studies Radiology: [] reviewed Other Studies: [] Route of nutrition/ use of supplements: [] Nutritional Intake: [] IV Site: [] Lara Catheter: [] - Physical Exam General: Alert, Oriented x3, Cooperative, No apparent distress HEENT: Atraumatic, PERRLA, EOMI Neck: Supple, No Nodes Lungs: Rhonchi - More on L side Cardiovascular: Tachycardic Abdomen: Soft, Non Tender, Non-Distended Extremities: No edema Skin: No rashes IV Site: Peripheral, without redness Musculoskeletal: No Tenderness to Palpation of Joints or Extremities Neurological: Cranial nerves II-XII grossly intact - Assessment/Plan Antibiotics: [] Assessment/Plan: [] severe sepsis due to CAP - UAgs neg, sputum cx and Bcx pending. Improving on zosyn, will continue. Will follow, thank you, d/w Dr. Tapia
--- NOTE | 2018-11-17 12:37 | CASEMGMT ---
RN CM Assessment Recent Admission: 11/06-11/07/18. Observation Diagnosis: cellulitis nares DC: Home on dc w/po antibiotics. Presentation: Pneumonia Intro role of CM and purpose of RN CM assessment to patient and his . Pt is awake and alert, able to participate in dc planning. Demographics, PCP and Pharmacy verified. Pt states he is independent, able to care for self. No concerns on dc per pt and . PCP: Dr. Portillo Preferred Pharmacy: [facility] [place] Insurance: None. Pt is w/package plan for [facility] Prescription Benefit: none, self pay LNOK: , Keagan Schmid Living Arrangements: Lives independently, no assistance with care needed per pt. Transportation: Drives DME: None HHC: None Patient DC goals: Home DC PLAN: Home Matthew STONE RN ACM
--- NOTE | 2018-11-17 14:03 | PN_ITS ---
Patient Problems: Active and Suspected Problems Severe sepsis (Acute) Subjective: Patient seen and examined. Feels significantly improved. Weakness improved, denies further shortness of breath. Denies cough. Fever improving. - Physical Exam General: Alert, Oriented x3, Cooperative HEENT: Atraumatic, PERRLA, EOMI, Normocephalic Neck: Supple, No JVD, Negative Carotid Bruits Lungs: Clear to auscultation, Normal air movement Cardiovascular: Regular rate, Regular Rhythm, Normal S1, Normal S2, No murmurs Abdomen: Bowel Sounds Present, Soft, Non Tender, Non-Distended Extremities: No clubbing, No cyanosis, No edema, Capillary Refill Less than 3 Seconds Skin: No rashes, No breakdown Musculoskeletal: No Tenderness to Palpation of Joints or Extremities Neurological: Cranial nerves II-XII grossly intact, Neuro grossly intact Psych/Mental Status: Normal Affect, Appropriate Vital Signs Temp Pulse Resp BP Pulse Ox 100.0 F H 92 18 130/80 H 93 11/17/18 08:05 11/17/18 11:02 11/17/18 11:02 11/17/18 08:05 11/17/18 08:05 Oxygen Delivery Method Room Air Weight: 182 lb 1.629 oz Body Mass Index (BMI) 26.1 Intake and Output for Last 24 Hours 11/15/18 11/16/18 11/17/18 23:59 23:59 23:59 Intake Total 2039 / 2039 2804 / 2804 Output Total 850 / 850 2625 / 2625 Balance 1189 / 1189 179 / 179 Microbiology Past 72 Hours 11/16/18 16:20 Gram Stain - Final Sputum, Expectorated/Coughed 11/16/18 17:30 Legionella Antigen - Final Urine, Random Streptococcus pneumoniae Antigen (M - Final Laboratory Tests Past 24 Hrs 11/16/18 11/16/18 11/16/18 11:30 11:30 16:05 WBC RBC Hgb Hct MCV MCH MCHC RDW Std Deviation RDW Coeff of Talia Plt Count MPV Immature Gran % (Auto) Neut % (Auto) Lymph % (Auto) [place] % (Auto) Eos % (Auto) Baso % (Auto) Absolute Neuts (auto) Absolute Nucleated RBC Nucleated RBC % Differential Comment Diff Path Review Reviewed Toxic Granulation Platelet Estimate Sodium Potassium Chloride Carbon Dioxide Anion Gap BUN Creatinine Estim Creat Clear Calc Est GFR (MDRD) Af Amer Est GFR (MDRD) Non-Af BUN/Creatinine Ratio Glucose Hemoglobin A1c 6.0 Lactic Acid 2.2 H Calcium 11/17/18 11/17/18 05:54 05:54 WBC 19.7 H RBC 3.90 L Hgb 11.2 L Hct 34.4 L MCV 88.2 MCH 28.7 MCHC 32.6 RDW Std Deviation 43.3 RDW Coeff of Talia 13.4 Plt Count 595 H MPV 7.7 Immature Gran % (Auto) 1.900 H Neut % (Auto) 83.2 H Lymph % (Auto) 6.3 L [place] % (Auto) 8.0 Eos % (Auto) 0.2 Baso % (Auto) 0.4 Absolute Neuts (auto) Not Reportable Absolute Nucleated RBC 0.00 Nucleated RBC % 0 Differential Comment SCANNED Diff Path Review May foll Toxic Granulation 2+ Platelet Estimate SLT INC Sodium 134 L Potassium 4.2 Chloride 99 Carbon Dioxide 28.0 Anion Gap 7 BUN 10 Creatinine 0.83 Estim Creat Clear Calc 109.94 Est GFR (MDRD) Af Amer 125 Est GFR (MDRD) Non-Af 103 BUN/Creatinine Ratio 12.0 Glucose 112 H Hemoglobin A1c Lactic Acid Calcium 8.2 L Medical Necessity - Tobacco Use Smoking Status: Never smoker Assessment/Plan All Active Problems Severe sepsis (Acute) Acute sinusitis (Resolved) 1. Acute severe sepsis secondary to presumed HCAP-(WBC 31, tachycardic, tachypneic) chest x-ray admission with lingular infiltrate with effusion. Patient recently discharged 11/07/2018 after being treated for acute sinusitis which failed outpatient therapy. He was discharged at that time on Omnicef for [address] normal. Facial and sinus CT showed minimal left maxillary sinusitis. IV Zosyn. Albuterol and DuoNeb aerosols. Infectious disease following. Urine antigens negative. Sputum and blood culture pending. 2. Hypovolemic hyponatremia-sodium 127 on admission. Improved with IV fluids. 3. Thrombocytosis-possibly reactive secondary to #1. Trending down. 4. Elevated glucose-stress response related to #1. Hemoglobin A1c normal. DVT prophylaxis-Lovenox subcu This patient was seen by DENNYS Coughlin under the supervision of Dr. Tapia.
[2018-11-17] MEDS: 0.9% Normal Saline 1,000 ML 125 ML IV (20:37)
[2018-11-17] MEDS: Zolpidem Tartrate 5 MG Tablet PO (22:06)
[2018-11-18] VITALS (14 sets, daily range): BP systolic 132–159; BP diastolic 76–95; PULSE 112–124; RESP 18–20; TEMP 37.3–37.9; O2SAT 93–95
[2018-11-18] MEDS: 0.9% Normal Saline 1,000 ML 125 ML IV ×3 (04:11→21:08)
--- NOTE | 2018-11-18 05:55 | RAD_ITS ---
STUDY: X-RAY CHEST REASON FOR EXAM: Male, 52 years old. Shortness of breath. TECHNIQUE: PA and lateral views. COMPARISON: 11/16/2018. FINDINGS: Persistent air bronchogram in the left lower lobe. Increased subsegmental atelectasis in the right lung base. Possible minimal bilateral pleural fluid. Cardiomegaly is unchanged. There are no other additional findings. RAD/Chest PA and Lateral IMPRESSION: 1. Persistent air bronchograms in the left lower lobe which may be due to combination of atelectasis and pneumonia. 2. Increased subsegmental atelectasis in the right lung base. 3. Possible minimal bilateral pleural fluid. Electronically Signed: Nabil Arreaga MD at 9:33 EDT , Service support ,
[2018-11-18] MEDS: Enoxaparin 40 MG/0.4 ML Syringe SC (06:04)
[2018-11-18 06:21] LABS: Anion Gap 10 (5-15); BUN 7 mg/dL (7-18); BUN/Creat Ratio 9.2 RATIO (10-20); Calcium,Total 8.2 mg/dL (8.5-10.1); Chloride 97 mmol/L (98-107); Creatinine, Serum 0.76 mg/dL (0.70-1.30); EST Glomerular Filtration Rate 115 mL/min (>60); Est Glom Filt Rate - Afr Amer 139 mL/min (>60); Estimated Creatinine Clearance 120.07 ml/min; Glucose 122 mg/dL (74-106); Sodium Level 133 mmol/L (136-145)
[2018-11-18 06:27] LABS: Hematocrit 33.5 % (40-54); Hemoglobin 11.1 g/dL (13.0-16.5); Mean Corp Hgb Conc 33.1 g/dL (32-36); Mean Corpuscular Hgb 28.9 pg (27.0-32.0); Mean Corpuscular Volume 87.2 fL (80-94); Platelet Count 591 K/mm3 (150-450); RBC Distribution Width CV 13.4 % (11.6-14.6); RBC Distribution Width SD 42.7 fl (35.1-43.9); Red Blood Count 3.84 M/mm3 (4.6-6.2); White Blood Count 20.3 K/mm3 (4.4-11.0)
[2018-11-18] MEDS: Ipratropium/Albuterol Sulfate 3 ML AMPUL.NEB INHALATION ×4 (06:43→19:35)
--- NOTE | 2018-11-18 10:03 | PCM.PN.ID ---
Patient Problems: Active and Suspected Problems Severe sepsis (Acute) Subjective: Feeling better, no fever, breathing improved, but fatigued after getting ready this AM. - Physical Exam General: Alert, Cooperative, No apparent distress Lungs: Clear to auscultation, Normal air movement Cardiovascular: Regular rate, Regular Rhythm Abdomen: Soft, Non Tender, Non-Distended Skin: No rashes Vital Signs Temp Pulse Resp BP Pulse Ox 99.5 F H 120 H 20 H 153/83 H 93 11/18/18 05:59 11/18/18 06:43 11/18/18 06:43 11/18/18 03:20 11/18/18 03:20 Oxygen Delivery Method Room Air Weight: 82.6 kg Body Mass Index (BMI) 26.1 Intake and Output for Last 24 Hours 11/16/18 11/17/18 11/18/18 23:59 23:59 23:59 Intake Total 2039 / 2039 6027 / 6027 727 / 727 Output Total 850 / 850 5400 / 5400 1000 / 1000 Balance 1189 / 1189 627 / 627 -273 / -273 Microbiology Past 72 Hours 11/16/18 16:20 Gram Stain - Final Sputum, Expectorated/Coughed Respiratory Culture - Preliminary Appears to be normal respiratory hue. Further studies to follow. 11/16/18 17:30 Legionella Antigen - Final Urine, Random Streptococcus pneumoniae Antigen (M - Final Laboratory Tests Past 24 Hrs 11/18/18 11/18/18 05:26 05:26 WBC 20.3 H RBC 3.84 L Hgb 11.1 L Hct 33.5 L MCV 87.2 MCH 28.9 MCHC 33.1 RDW Std Deviation 42.7 RDW Coeff of Talia 13.4 Plt Count 591 H MPV 8.0 Sodium 133 L Potassium 4.0 Chloride 97 L Carbon Dioxide 26.0 Anion Gap 10 BUN 7 Creatinine 0.76 Estim Creat Clear Calc 120.07 Est GFR (MDRD) Af Amer 139 Est GFR (MDRD) Non-Af 115 BUN/Creatinine Ratio 9.2 L Glucose 122 H Calcium 8.2 L Medical Necessity - Tobacco Use Smoking Status: Never smoker Route of nutrition/ use of supplements: [] Nutritional Intake: [] IV Site: [] Lara Catheter: [] - Assessment/Plan Antibiotics: [] Assessment/Plan: [] severe sepsis due to CAP - UAgs neg, sputum cx and Bcx neg so far Improving on zosyn, will continue. Wbc and exam much improved. CXR repeat this AM. Will follow
[2018-11-18] MEDS: guaiFENesin 1,200 MG Tablet 1200 MG PO ×2 (10:58→21:17)
--- NOTE | 2018-11-18 12:51 | PCM.PROGNOTE ---
Patient Problems: Active and Suspected Problems Severe sepsis (Acute) Subjective: Pt resting comfortably in bed. No chills. Mild cough. Occasional drops of blood. No rhinitis, sinus pressure, or sinus congestion. Some ongoing SOB. Encouraged up to chair and ambulation in the [place] today. - Physical Exam General: Alert, Oriented x3, Cooperative HEENT: Atraumatic, PERRLA, EOMI, Normocephalic Neck: Supple, No JVD, Negative Carotid Bruits Lungs: Rales Cardiovascular: Regular rate, No murmurs Abdomen: Bowel Sounds Present, Soft, Non Tender Extremities: No edema, Capillary Refill Less than 3 Seconds Skin: No rashes, No breakdown Musculoskeletal: No Tenderness to Palpation of Joints or Extremities Neurological: Cranial nerves II-XII grossly intact Psych/Mental Status: Normal Affect, Appropriate, Alert and oriented to time, place, person, mood and affect Vital Signs Temp Pulse Resp BP Pulse Ox 99.2 F H 117 H 20 H 132/91 H 95 11/18/18 09:15 11/18/18 11:13 11/18/18 11:13 11/18/18 09:15 11/18/18 09:15 Oxygen Delivery Method Room Air Weight: 182 lb 1.629 oz Body Mass Index (BMI) 26.1 Intake and Output for Last 24 Hours 11/16/18 11/17/18 11/18/18 23:59 23:59 23:59 Intake Total 2039 / 2039 6027 / 6027 727 / 727 Output Total 850 / 850 5400 / 5400 1000 / 1000 Balance 1189 / 1189 627 / 627 -273 / -273 Microbiology Past 72 Hours 11/17/18 19:26 Respiratory Panel (PCR) - Final Mucosa - Nose 11/16/18 16:20 Gram Stain - Final Sputum, Expectorated/Coughed Respiratory Culture - Preliminary Appears to be normal respiratory hue. Further studies to follow. 11/16/18 17:30 Legionella Antigen - Final Urine, Random Streptococcus pneumoniae Antigen (M - Final Laboratory Tests Past 24 Hrs 11/18/18 11/18/18 05:26 05:26 WBC 20.3 H RBC 3.84 L Hgb 11.1 L Hct 33.5 L MCV 87.2 MCH 28.9 MCHC 33.1 RDW Std Deviation 42.7 RDW Coeff of Talia 13.4 Plt Count 591 H MPV 8.0 Sodium 133 L Potassium 4.0 Chloride 97 L Carbon Dioxide 26.0 Anion Gap 10 BUN 7 Creatinine 0.76 Estim Creat Clear Calc 120.07 Est GFR (MDRD) Af Amer 139 Est GFR (MDRD) Non-Af 115 BUN/Creatinine Ratio 9.2 L Glucose 122 H Calcium 8.2 L Medical Necessity - Tobacco Use Smoking Status: Never smoker Assessment/Plan All Active Problems Severe sepsis (Acute) Acute sinusitis (Resolved) 1. Acute severe sepsis 2/2 HCAP - repeat cxr with developing atelectasis on the right, air bronchograms on the left. d/w pulmonary medicine - likely pneumonia. Continue abx as directed by ID. CT sinus' appear to have mild right sided maxillary sinusitis and his sinus symptoms have resolved so I doubt the sinusitis is still a factor in his sepsis. -resp panel neg -urine ag neg -sputum cx unremarkable -blood cx pending. -continue PEP, IS, mucinex, aerosols. 2. Hypovolemic hyponatremia - resolved 3. Abnormal LFTs - unclear etiology. improved. Possibly 2/2 sepsis. DVT ppx: lovenox DC planning: home with at DC This patient was seen by Guille Richards PA-C under the supervision of Dr. Tapia.
[2018-11-18 13:44] LABS: Pathologist Review Reviewed
--- NOTE | 2018-11-18 14:25 | CON.PCM_ITS ---
Problem List (1) Pneumonia due to suspected gram-negative bacteria Status: Acute (2) Severe sepsis Status: Acute Reason for Consult Date of Consultation: 11/18/18 Reason for Consultation: Pneumonia History of Present Illness: The patient is a 52 year old M, with past medical history listed below, who presented [facility] [place] on 11/16/2018 secondary to progressive weakness. Patient was admitted to the hospital 1 week prior to this presentation for nasal cellulitis. Patient received 1 day of IV antibiotics, but it was then discharged on oral antibiotics. Patient had reported some trouble sleeping and continued to have low-grade temperatures at home despite finishing a course of clindamycin. In the ER, patient's nasal cellulitis was reportedly improved. Patient did have a leukocytosis of 31.4, platelets of 758 and improvement in liver enzymes. CT of the head and sinuses showed improvement. Chest x-ray showed a lingular infiltrate with effusion, so patient was treated with IV fluids, Zosyn and admitted to the hospital for further evaluation. Since being in the hospital, patient has improved somewhat. Patient reports subjective improvement, but leukocytosis persisted, so a pulmonary consult was obtained. Patient reports that he does not cough much at baseline. Patient denies ever having pulmonary function tests or seeing a cargo and container inspector. 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 Patient is never had an issue with pneumonia previously. Patient has reported some shortness of breath on exertion, but states that he feels that this is secondary to age. Patient does report that he has had multiple CAT scans in the past, but is unable to describe them. Review of systems otherwise negative x10 systems. Patient currently is on room air. Patient does not use supplemental oxygen at baseline. Did have a conversation with infectious disease. Patient is improving from their perspective and bronchoscopy would not be necessary at this time. Past Medical History Allergies No Known Allergies Allergy (Verified 11/06/18 11:03) Home Medications: Ambulatory Orders Medication Instructions Recorded Ibuprofen [Motrin] 400 mg PO Q4H PRN PRN tab 11/07/18 Pseudoephedrine [Sudafed] 30 mg PO Q6H PRN PRN tab 11/07/18 Multivitamin [Multivitamins] 1 ea PO DAILY 11/16/18 Surgical History: noncontributory Psychiatric History: No pertinent psych hx Lives: Spouse/ Significant Other Smoking Status: Never smoker Alcohol: None Drugs: None - *Family History Maternal History Items: Hypertension Paternal History Items: - - prostate cancer Review of Systems Comment: See HPI Patient Problems: Active and Suspected Problems Severe sepsis (Acute) Pneumonia due to suspected gram-negative bacteria (Acute) Objective: Multiple chest x-rays were reviewed. Patient does have a left basilar infiltrate with air bronchograms. No pulmonary function test or cardiac evaluation is available for review from this hospital. - Physical Exam General: Alert, Oriented x3, Cooperative, No apparent distress, Well developed, Well nourished, - - No conversational dyspnea. Appears somewhat pale HEENT: Atraumatic, PERRLA, EOMI, Normocephalic, - - No scleral icterus or injection noted. Oral: Moist Mucosa, No Gingival or Mucosal Lesions/ Ulcerations Neck: Supple, No JVD, No Nodes, Trachea Midline Lungs: No rhonchi, No wheeze, No rales, Diminished - Bronchial breath sounds at the left anterior base, - - Symmetric expansion. Cardiovascular: Regular rate, Regular Rhythm, Normal S1, Normal S2, No murmurs, No rub noted, No Gallop Abdomen: Bowel Sounds Present, Soft, Non Tender, Non-Distended Extremities: No clubbing, No cyanosis, No edema, Capillary Refill Less than 3 Seconds Skin: No rashes, No breakdown Musculoskeletal: No Tenderness to Palpation of Joints or Extremities Lymphatic: No Cervical, Supraclavicular, or Inguinal Adenopathy Neurological: Cranial nerves II-XII grossly intact, Neuro grossly intact, Motor Exam 5/5 strength throughout Psych/Mental Status: Alert and oriented to time, place, person, mood and affect Vital Signs Temp Pulse Resp BP Pulse Ox 37.3 C H 117 H 20 H 132/91 H 95 11/18/18 09:15 11/18/18 11:13 11/18/18 11:13 11/18/18 09:15 11/18/18 09:15 Oxygen Delivery Method Room Air Weight: 82.6 kg Body Mass Index (BMI) 26.1 Intake and Output for Last 24 Hours 11/16/18 11/17/18 11/18/18 23:59 23:59 23:59 Intake Total 2038 / 2038 6027 / 6027 2327 / 2327 Output Total 850 / 850 5400 / 5400 2250 / 2250 Balance 1189 / 1189 627 / 627 77 / 77 Microbiology Past 72 Hours 11/17/18 19:26 Respiratory Panel (PCR) - Final Mucosa - Nose 11/16/18 16:20 Gram Stain - Final Sputum, Expectorated/Coughed Respiratory Culture - Preliminary Appears to be normal respiratory hue. Further studies to follow. 11/16/18 17:30 Legionella Antigen - Final Urine, Random Streptococcus pneumoniae Antigen (M - Final Laboratory Tests Past 24 Hrs 11/17/18 11/18/18 11/18/18 05:54 05:26 05:26 WBC 20.3 H RBC 3.84 L Hgb 11.1 L Hct 33.5 L MCV 87.2 MCH 28.9 MCHC 33.1 RDW Std Deviation 42.7 RDW Coeff of Talia 13.4 Plt Count 591 H MPV 8.0 [address] Review Reviewed Sodium 133 L Potassium 4.0 Chloride 97 L Carbon Dioxide 26.0 Anion Gap 10 BUN 7 Creatinine 0.76 Estim Creat Clear Calc 120.07 Est GFR (MDRD) Af Amer 139 Est GFR (MDRD) Non-Af 115 BUN/Creatinine Ratio 9.2 L Glucose 122 H Calcium 8.2 L Clinical Impression(s) from Imaging Studies Chest X-Ray 11/18/18 05:55 IMPRESSION: 1. Persistent air bronchograms in the left lower lobe which may be due to combination of atelectasis and pneumonia. 2. Increased subsegmental atelectasis in the right lung base. 3. Possible minimal bilateral pleural fluid. Electronically Signed: Nabil Arreaga MD at 9:33 EDT , Service support , Assessment/Plan All Active Problems Severe sepsis (Acute) Pneumonia due to suspected gram-negative bacteria (Acute) Acute sinusitis (Resolved) RECOMMENDATIONS: 1. Antibiotics per infectious disease 2. Encourage incentive spirometer and Acapella therapy 3. Attempt to obtain reports from old chest CTs 4. Outpatient follow-up with chest x-ray to document resolution in 6 to 8 weeks 5. No bronchoscopy at this time IMPRESSIONS: 1. Healthcare associated pneumonia secondary to probable gram-negative Work-up has been negative to this point. Patient does have a significant left lower lobe infiltrate and leukocytosis. Patient has responded well to Zosyn therapy from an infectious disease standpoint. Did discuss with infectious disease on whether bronchoscopy would be helpful. We will hold off for now. If patient continues to have an infiltrate, this could be completed as an outpatient following a CT scan. Encourage patient to use incentive spirometer and Acapella therapy to allow for recruitment as patient does appear to be developing some right lower lobe atelectasis. Given construction history, pleural disease cannot be excluded. Patient does not have a significant eosinophilia to suggest allergic asthma. Given air bronchograms in the left lower lobe, it is unlikely the patient has a central obstructing mass. 2. Hypovolemic hyponatremia Resolved. No indication for fluid supplementation at this time 3. Abnormal LFT Unclear etiology. This is not been rechecked. Reasonable to check as an outpatient. Patient does not have any abdominal pain. Code Visit Inpatient E&M: 61475 Init Hosp L2
--- NOTE | 2018-11-18 15:24 | CASEMGMT ---
Social Work Note PFS saw pt. Pt stated that he plans on taking advantage of 20% discount and PIF within the first 30 days, states he has a sharing plan with his [employer] and was not worried about financials at this time. Cinthya Aleman CONTRACT NEGOTIATION MANAGER, STAKEHOLDER MANAGER
[2018-11-18] MEDS: Ibuprofen 600 MG Tablet PO (19:06)
[2018-11-19] VITALS (10 sets, daily range): BP systolic 127–160; BP diastolic 80–90; PULSE 92–130; RESP 16–22; TEMP 36.8–37.7; O2SAT 93–97
[2018-11-19] MEDS: 0.9% Normal Saline 1,000 ML 125 ML IV (04:52)
[2018-11-19 05:53] LABS: Absolute Lymphocyte Count 0.53 X10^3/uL (0.83-4.51); Absolute Neutrophil Count 17.4 X10^3/uL (2.0-7.7); Basophil# 0.05 X10^3/uL; Basophil% 0.3 % (0-1); Eosinophil# 0.03 X10^3/uL; Eosinophils% 0.2 % (0-5); Hematocrit 34.6 % (40-54); Hemoglobin 11.3 g/dL (13.0-16.5); Lymphocyte # 0.53 X10^3/ul (4.0); Lymphocyte % 2.7 % (19-41); Mean Corp Hgb Conc 32.7 g/dL (32-36); Mean Corpuscular Hgb 28.7 pg (27.0-32.0); Mean Corpuscular Volume 87.8 fL (80-94); Mean Platelet Vol. 7.9 fl (6.2-12.0); Monocyte# 1.11 X10^3/uL; Monocyte% 5.7 % (0-10); NRBC Flagged by Analyzer 0 % (0-5); Neutrophil # 17.39 X10^3/uL (2.7-7.7); Neutrophil % 89.8 % (47-70); POSITIVE DIFFERENTIAL YES; Platelet Count 592 K/mm3 (150-450); RBC Distribution Width CV 13.2 % (11.6-14.6); Red Blood Count 3.94 M/mm3 (4.6-6.2); White Blood Count 19.4 K/mm3 (4.4-11.0)
[2018-11-19 05:56] LABS: Differential Indicated SCAN CRITERIA MET
[2018-11-19] MEDS: Enoxaparin 40 MG/0.4 ML Syringe SC (06:13)
[2018-11-19 06:29] LABS: Differential Comment SCANNED
[2018-11-19 06:30] LABS: Platelet Estimate SLT INC (ADEQ)
[2018-11-19] MEDS: Ipratropium/Albuterol Sulfate 3 ML AMPUL.NEB INHALATION ×3 (07:28→18:42)
--- NOTE | 2018-11-19 10:03 | PN_ITS ---
Patient Problems: Active and Suspected Problems Severe sepsis (Acute) Pneumonia due to suspected gram-negative bacteria (Acute) Subjective: Patient did well overnight. Patient continues to report no cough, but subjectively feels he is doing well. Patient was able to ambulate to the halls yesterday without any difficulty, but was not using a pulse oximeter to monitor saturations. Patient reports getting 750 mL's on incentive spirometer. Patient is compliant with Acapella therapy. Patient's was at the bedside during my evaluation. - Physical Exam General: Alert, Oriented x3, Cooperative, No apparent distress HEENT: Atraumatic, PERRLA, EOMI, Normocephalic Oral: Moist Mucosa, No Gingival or Mucosal Lesions/ Ulcerations Neck: Supple, No JVD, No Nodes, Trachea Midline Lungs: No rhonchi, No wheeze, No rales, Diminished Cardiovascular: Regular rate, Regular Rhythm, Normal S1, Normal S2, No murmurs, No rub noted, No Gallop Abdomen: Bowel Sounds Present, Soft, Non Tender, Non-Distended Extremities: No clubbing, No cyanosis, No edema, Capillary Refill Less than 3 Seconds Skin: No rashes, No breakdown Musculoskeletal: No Tenderness to Palpation of Joints or Extremities Lymphatic: No Cervical, Supraclavicular, or Inguinal Adenopathy Neurological: Cranial nerves II-XII grossly intact, Neuro grossly intact, Motor Exam 5/5 strength throughout Psych/Mental Status: Alert and oriented to time, place, person, mood and affect Vital Signs Temp Pulse Resp BP Pulse Ox 36.8 C 118 H 20 H 147/85 H 97 11/19/18 02:10 11/19/18 07:20 11/19/18 07:20 11/19/18 02:10 11/19/18 02:10 Oxygen Delivery Method Room Air Weight: 82.6 kg Body Mass Index (BMI) 26.1 Intake and Output for Last 24 Hours 11/17/18 11/18/18 11/19/18 23:59 23:59 23:59 Intake Total 6027 / 6027 5359 / 5359 1036 / 1036 Output Total 5400 / 5400 4400 / 4400 1125 / 1125 Balance 627 / 627 959 / 959 -89 / -89 Microbiology Past 72 Hours 11/16/18 16:20 Gram Stain - Final Sputum, Expectorated/Coughed Respiratory Culture - Final 11/16/18 16:05 Blood Culture - Preliminary Blood Culture (Wb) - Right Forearm No growth in 48 hours. 11/16/18 15:55 Blood Culture - Preliminary Blood Culture (Wb) - Anticubital Right No growth in 48 hours. 11/17/18 19:26 Respiratory Panel (PCR) - Final Mucosa - Nose 11/16/18 17:30 Legionella Antigen - Final Urine, Random Streptococcus pneumoniae Antigen (M - Final Laboratory Tests Past 24 Hrs 11/17/18 11/19/18 05:54 05:22 WBC 19.4 H RBC 3.94 L Hgb 11.3 L Hct 34.6 L MCV 87.8 MCH 28.7 MCHC 32.7 RDW Std Deviation 43.0 RDW Coeff of Atlia 13.2 Plt Count 592 H MPV 7.9 Immature Gran % (Auto) 1.300 H Neut % (Auto) 89.8 H Lymph % (Auto) 2.7 L [place] % (Auto) 5.7 Eos % (Auto) 0.2 Baso % (Auto) 0.3 Absolute Neuts (auto) 17.4 H Absolute Lymphs (auto) 0.53 L Absolute Nucleated RBC 0.00 Nucleated RBC % 0 Differential Comment SCANNED Diff Path Review Reviewed Platelet Estimate SLT INC Medical Necessity - Tobacco Use Smoking Status: Never smoker Assessment/Plan All Active Problems Severe sepsis (Acute) Pneumonia due to suspected gram-negative bacteria (Acute) Acute sinusitis (Resolved) RECOMMENDATIONS: 1. Antibiotics per infectious disease 2. Encourage incentive spirometer and Acapella therapy 3. Walking oximetry prior to discharge 4. Outpatient follow-up with chest x-ray to document resolution in 6 to 8 weeks 5. No bronchoscopy at this time IMPRESSIONS: 1. Healthcare associated pneumonia secondary to probable gram-negative Work-up has been negative to this point. Patient does have a significant left lower lobe infiltrate and leukocytosis. Patient has responded well to Zosyn therapy from an infectious disease standpoint. No bronchoscopy is planned at this time. Patient reports ability to ambulate. Will check a walking oximetry. Discharge antibiotics per infectious disease. Patient is aware of the need to follow-up. This can be completed with a primary care physician and if abnormal, we can see him in the office or patient can follow-up with us in 6 to 8 weeks with a chest x-ray before. Patient and are both aware of the importance of documenting resolution as this could also be secondary to another process such as malignancy. 2. Hypovolemic hyponatremia Resolved. No indication for fluid supplementation at this time 3. Abnormal LFT Unclear etiology. This is not been rechecked. Reasonable to check as an outpatient. Patient does not have any abdominal pain. Code Visit Inpatient E&M: 98712 Subs Hosp L2
[2018-11-19] MEDS: guaiFENesin 1,200 MG Tablet 1200 MG PO ×2 (10:14→22:06)
[2018-11-19] MEDS: Ibuprofen 600 MG Tablet PO (10:19)
--- NOTE | 2018-11-19 13:22 | PCM.PN.ID ---
Patient Problems: Active and Suspected Problems Severe sepsis (Acute) Pneumonia due to suspected gram-negative bacteria (Acute) Subjective: Feeling a little better. No fever. No sputum. - Physical Exam General: Alert, Cooperative, No apparent distress Lungs: Clear to auscultation, Normal air movement Cardiovascular: Regular rate, Regular Rhythm Abdomen: Soft, Non Tender, Non-Distended Skin: No rashes Vital Signs Temp Pulse Resp BP Pulse Ox 99.3 F H 125 H 20 H 153/87 H 94 11/19/18 10:03 11/19/18 10:03 11/19/18 10:03 11/19/18 10:03 11/19/18 11:25 Oxygen Delivery Method Room Air Weight: 82.6 kg Body Mass Index (BMI) 26.1 Intake and Output for Last 24 Hours 11/17/18 11/18/18 11/19/18 23:59 23:59 23:59 Intake Total 6027 / 6027 5359 / 5359 2160 / 2160 Output Total 5400 / 5400 4400 / 4400 1525 / 1525 Balance 627 / 627 959 / 959 635 / 635 Microbiology Past 72 Hours 11/16/18 16:20 Gram Stain - Final Sputum, Expectorated/Coughed Respiratory Culture - Final 11/16/18 16:05 Blood Culture - Preliminary Blood Culture (Wb) - Right Forearm No growth in 48 hours. 11/16/18 15:55 Blood Culture - Preliminary Blood Culture (Wb) - Anticubital Right No growth in 48 hours. 11/17/18 19:26 Respiratory Panel (PCR) - Final Mucosa - Nose 11/16/18 17:30 Legionella Antigen - Final Urine, Random Streptococcus pneumoniae Antigen (M - Final Laboratory Tests Past 24 Hrs 11/17/18 11/19/18 05:54 05:22 WBC 19.4 H RBC 3.94 L Hgb 11.3 L Hct 34.6 L MCV 87.8 MCH 28.7 MCHC 32.7 RDW Std Deviation 43.0 RDW Coeff of Talia 13.2 Plt Count 592 H MPV 7.9 Immature Gran % (Auto) 1.300 H Neut % (Auto) 89.8 H Lymph % (Auto) 2.7 L [place] % (Auto) 5.7 Eos % (Auto) 0.2 Baso % (Auto) 0.3 Absolute Neuts (auto) 17.4 H Absolute Lymphs (auto) 0.53 L Absolute Nucleated RBC 0.00 Nucleated RBC % 0 Differential Comment SCANNED Diff Path Review Reviewed Platelet Estimate SLT INC Medical Necessity - Tobacco Use Smoking Status: Never smoker Route of nutrition/ use of supplements: [] Nutritional Intake: [] IV Site: [] Lara Catheter: [] - Assessment/Plan Antibiotics: [] Assessment/Plan: [] severe sepsis due to CAP - UAgs neg, sputum cx and Bcx neg so far Improving on zosyn, will narrow to po levaquin. Wbc improved but remains elevated. Plan on 6 more days of levaquin, stop date 11/23/18. Will follow
[2018-11-19] MEDS: levoFLOXacin 500 MG Tablet PO (14:37)
--- NOTE | 2018-11-19 14:38 | PCM.PROGNOTE ---
Patient Problems: Active and Suspected Problems Severe sepsis (Acute) Pneumonia due to suspected gram-negative bacteria (Acute) Subjective: Patient was seen and examined today, patient's white blood cell count still elevated and he is still slightly febrile. I talked to infectious diseases today and antibiotics were changed to oral Levaquin. I stopped the patient's IV fluids. I will repeat the patient's CBC tomorrow. - Physical Exam General: Alert, Oriented x3, Cooperative, No apparent distress, Well developed HEENT: Atraumatic, PERRLA, EOMI, Normocephalic Oral: Moist Mucosa Neck: Supple, Trachea Midline, Thyroid Normal Size and Texture Lungs: Normal air movement, Rales - Inspiratory rales are noted over the left lower lung area Cardiovascular: Regular rate, Regular Rhythm, Normal S1, Normal S2, No murmurs, PMI Normal, No rub noted, No Gallop Abdomen: Bowel Sounds Present, Soft, Non Tender, Non-Distended, No hernias noted Extremities: No clubbing, No cyanosis, No edema, Capillary Refill Less than 3 Seconds Skin: No rashes, No breakdown Musculoskeletal: No Tenderness to Palpation of Joints or Extremities Neurological: Cranial nerves II-XII grossly intact, Neuro grossly intact, Sensory exam intact to light touch and pain, Coordination normal Psych/Mental Status: Normal Affect, Appropriate, Alert and oriented to time, place, person, mood and affect Vital Signs Temp Pulse Resp BP Pulse Ox 98.4 F 92 18 127/80 H 96 11/19/18 13:23 11/19/18 13:43 11/19/18 13:43 11/19/18 13:23 11/19/18 13:23 Oxygen Delivery Method Room Air Weight: 82.6 kg Body Mass Index (BMI) 26.1 Intake and Output for Last 24 Hours 11/17/18 11/18/18 11/19/18 23:59 23:59 23:59 Intake Total 6027 / 6027 5359 / 5359 2160 / 2160 Output Total 5400 / 5400 4400 / 4400 1525 / 1525 Balance 627 / 627 959 / 959 635 / 635 Microbiology Past 72 Hours 11/16/18 16:20 Gram Stain - Final Sputum, Expectorated/Coughed Respiratory Culture - Final 11/16/18 16:05 Blood Culture - Preliminary Blood Culture (Wb) - Right Forearm No growth in 48 hours. 11/16/18 15:55 Blood Culture - Preliminary Blood Culture (Wb) - Anticubital Right No growth in 48 hours. 11/17/18 19:26 Respiratory Panel (PCR) - Final Mucosa - Nose 11/16/18 17:30 Legionella Antigen - Final Urine, Random Streptococcus pneumoniae Antigen (M - Final Laboratory Tests Past 24 Hrs 11/19/18 05:22 WBC 19.4 H RBC 3.94 L Hgb 11.3 L Hct 34.6 L MCV 87.8 MCH 28.7 MCHC 32.7 RDW Std Deviation 43.0 RDW Coeff of Talia 13.2 Plt Count 592 H MPV 7.9 Immature Gran % (Auto) 1.300 H Neut % (Auto) 89.8 H Lymph % (Auto) 2.7 L [place] % (Auto) 5.7 Eos % (Auto) 0.2 Baso % (Auto) 0.3 Absolute Neuts (auto) 17.4 H Absolute Lymphs (auto) 0.53 L Absolute Nucleated RBC 0.00 Nucleated RBC % 0 Differential Comment SCANNED Platelet Estimate SLT INC Medical Necessity - Tobacco Use Smoking Status: Never smoker Assessment/Plan All Active Problems Severe sepsis (Acute) Pneumonia due to suspected gram-negative bacteria (Acute) Acute sinusitis (Resolved) #1 severe sepsis secondary to community-acquired pneumonia-organism unknown, antibiotic's were changed to Levaquin today #2 left-sided community-acquired pneumonia-organism unknown #3 hyponatremia-partially corrected at this point #4 persistent leukocytosis-questionably secondary to severe sepsis, repeat CBC tomorrow Code Visit Inpatient E&M: 33172 Subs Hosp L2
[2018-11-19] MEDS: Zolpidem Tartrate 5 MG Tablet PO (22:06)
[2018-11-20 01:50] VITALS: BP 144/88; PULSE 125; RESP 20; TEMP 38.5; O2SAT 95
[2018-11-20] MEDS: Acetaminophen 325 MG Tablet 650 MG PO (02:13)
[2018-11-20 03:40] VITALS: TEMP 37.4
[2018-11-20] MEDS: Enoxaparin 40 MG/0.4 ML Syringe SC (06:32)
[2018-11-20] MEDS: levoFLOXacin 500 MG Tablet PO (06:32)
[2018-11-20 06:42] LABS: Absolute Lymphocyte Count 1.08 X10^3/uL (0.83-4.51); Basophil# 0.03 X10^3/uL; Basophil% 0.2 % (0-1); Eosinophil# 0.01 X10^3/uL; Eosinophils% 0.1 % (0-5); Hematocrit 32.6 % (40-54); Hemoglobin 10.6 g/dL (13.0-16.5); Lymphocyte # 1.08 X10^3/ul (4.0); Mean Corp Hgb Conc 32.5 g/dL (32-36); Mean Corpuscular Hgb 28.6 pg (27.0-32.0); Mean Corpuscular Volume 88.1 fL (80-94); Mean Platelet Vol. 7.8 fl (6.2-12.0); Monocyte% 7.7 % (0-10); NRBC Flagged by Analyzer 0 % (0-5); Neutrophil # 12.96 X10^3/uL (2.7-7.7); Neutrophil % 83.4 % (47-70); Platelet Count 537 K/mm3 (150-450); RBC Distribution Width CV 13.5 % (11.6-14.6); RBC Distribution Width SD 43.8 fl (35.1-43.9); White Blood Count 15.5 K/mm3 (4.4-11.0)
--- NOTE | 2018-11-20 07:25 | PN_ITS ---
Patient Problems: Active and Suspected Problems Severe sepsis (Acute) Pneumonia due to suspected gram-negative bacteria (Acute) Subjective: Patient did okay overnight. Patient did have a significant fever, but states I slept under the blankets after that sleeping pill. Patient feels subjectively improved today compared to previous. Patient did have a walking oximetry with no desaturation. Patient states that he did not have his breathing treatment overnight and feels that he has better taste sensation this morning. Patient was eating a [employer] sandwich on my arrival. - Physical Exam General: Alert, Oriented x3, Cooperative, No apparent distress, Well developed, Well nourished, - - Speaking in full sentences. No conversational dyspnea. HEENT: Atraumatic, PERRLA, EOMI, Normocephalic, - - No scleral icterus or injection noted. Oral: Moist Mucosa, No Gingival or Mucosal Lesions/ Ulcerations Neck: Supple, No JVD, No Nodes, Trachea Midline Lungs: No rhonchi, No wheeze, No rales, Diminished - Improved air exchange left lower lobe Cardiovascular: Regular Rhythm, Normal S1, Normal S2, No murmurs, No rub noted, No Gallop, Tachycardic Abdomen: Bowel Sounds Present, Soft, Non Tender, Non-Distended Extremities: No clubbing, No cyanosis, No edema, Capillary Refill Less than 3 Seconds Skin: No rashes, No breakdown Musculoskeletal: No Tenderness to Palpation of Joints or Extremities Lymphatic: No Cervical, Supraclavicular, or Inguinal Adenopathy Neurological: Cranial nerves II-XII grossly intact, Neuro grossly intact, Motor Exam 5/5 strength throughout Psych/Mental Status: Alert and oriented to time, place, person, mood and affect Vital Signs Temp Pulse Resp BP Pulse Ox 37.4 C H 125 H 20 H 144/88 H 95 11/20/18 03:40 11/20/18 01:50 11/20/18 01:50 11/20/18 01:50 11/20/18 01:50 Oxygen Delivery Method Room Air Weight: 82.6 kg Body Mass Index (BMI) 26.1 Intake and Output for Last 24 Hours 11/18/18 11/19/18 11/20/18 23:59 23:59 23:59 Intake Total 5359 / 5359 2610 / 3350 1940 / 1940 Output Total 4400 / 4400 1525 / 2225 700 / 700 Balance 959 / 959 1085 / 1125 1240 / 1240 Microbiology Past 72 Hours 11/16/18 16:20 Gram Stain - Final Sputum, Expectorated/Coughed Respiratory Culture - Final 11/16/18 16:05 Blood Culture - Preliminary Blood Culture (Wb) - Right Forearm No growth in 48 hours. 11/16/18 15:55 Blood Culture - Preliminary Blood Culture (Wb) - Anticubital Right No growth in 48 hours. 11/17/18 19:26 Respiratory Panel (PCR) - Final Mucosa - Nose Laboratory Tests Past 24 Hrs 11/20/18 05:43 WBC 15.5 H RBC 3.70 L Hgb 10.6 L Hct 32.6 L MCV 88.1 MCH 28.6 MCHC 32.5 RDW Std Deviation 43.8 RDW Coeff of Talia 13.5 Plt Count 537 H MPV 7.8 Immature Gran % (Auto) 1.600 H Neut % (Auto) 83.4 H Lymph % (Auto) 7.0 L [place] % (Auto) 7.7 Eos % (Auto) 0.1 Baso % (Auto) 0.2 Absolute Neuts (auto) 13.0 H Absolute Lymphs (auto) 1.08 Absolute Nucleated RBC 0.00 Nucleated RBC % 0 Medical Necessity - Tobacco Use Smoking Status: Never smoker Assessment/Plan All Active Problems Severe sepsis (Acute) Pneumonia due to suspected gram-negative bacteria (Acute) Acute sinusitis (Resolved) RECOMMENDATIONS: 1. Antibiotics per infectious disease 2. Encourage incentive spirometer and Acapella therapy 3. Okay to transition to as needed bronchodilators from my perspective 4. Outpatient follow-up with chest x-ray to document resolution in 6 to 8 weeks 5. Patient to call for appointment if chest x-ray remains abnormal IMPRESSIONS: 1. Healthcare associated pneumonia secondary to probable gram-negative Work-up has been negative to this point. Patient does have a significant left lower lobe infiltrate and leukocytosis. Patient did have a fever overnight, but leukocytosis continues to improve. No bronchoscopy is planned at this time. Patient reports ability to ambulate. Will check a walking oximetry. Discharge antibiotics per infectious disease. Patient is aware of the need to follow-up. Patient reports he would like his PCP to review the chest x-ray. If back to normal, no pulmonary follow-up would be indicated. Patient is aware that if findings persist, he should be seen in our office for possible CT/bronchoscopy. 2. Hypovolemic hyponatremia Resolved. No indication for fluid supplementation at this time 3. Abnormal LFT Unclear etiology. This is not been rechecked. Reasonable to check as an outpatient. Patient does not have any abdominal pain. Code Visit Inpatient E&M: 39385 Subs Hosp L2
[2018-11-20 08:05] VITALS: PULSE 129
[2018-11-20 08:10] VITALS: BP 130/70; PULSE 129; RESP 18; TEMP 36.9; O2SAT 95
[2018-11-20] MEDS: guaiFENesin 1,200 MG Tablet 1200 MG PO (08:17)
--- NOTE | 2018-11-20 08:25 | NURSING ---
This nurse is aware that pt spo2 walking yesterday 11/19/18 was 94%.
[2018-11-20 09:58] LABS: Thyroid Stim Hormone (TSH) 3.15 uIU/mL (0.358-3.74)
--- NOTE | 2018-11-20 11:38 | DCINST_ITS ---
- Discharge Diagnoses Current Active Problems: Current Active and Chronic Problems Severe sepsis (Acute) Pneumonia due to suspected gram-negative bacteria (Acute) You will use the following diet at home:: No restrictions Your food should be the consistency of: Regular Your liquids should be the consistency of: Regular/Thin Discharge Activity: Return to Normal Activity Weight Bearing Status: Full weight bearing Allergies/Adverse Reactions: Allergies No Known Allergies Allergy (Verified 11/06/18 11:03) Medications to take at Discharge Ibuprofen [Motrin] 400 mg PO Q4H PRN PRN tab 11/07/18 Pseudoephedrine [Sudafed] 30 mg PO Q6H PRN PRN tab 11/07/18 Multivitamin [Multivitamins] 1 ea PO DAILY 11/16/18 levoFLOXacin tablet [Levaquin tablet] 750 mg PO DAILY #10 tablet 11/20/18 The following prescriptions were given: levoFLOXacin tablet [Levaquin tablet] 750 mg PO DAILY #10 tablet Primary Care Physician: Ayden Portillo DO [Primary Care Provider] - Please follow up with your Primary Care Physician in: in 10 days to 2 weeks-get repeat chest x-ray in 2 weeks Test Results: Test results from this visit will be discussed in further detail at your follow- up appointment, if applicable.
[2018-11-20 13:08] VITALS: BP 129/85; PULSE 116; RESP 18; TEMP 37.4; O2SAT 97
--- NOTE | 2018-11-20 16:33 | DS.PCM_ITS ---
Discharge Date and Diagnosis Date of Admission: 11/16/18 Date of Discharge: 11/20/18 - Primary Discharge Diagnosis #1 severe sepsis secondary to community-acquired pneumonia-organism unknown #2 left-sided community-acquired pneumonia-organism unknown #3 hyponatremia Hospital Course and Treatment Operations: None Procedures: None Summary of Care Provided: The patient is a 52 year old M was seen in the emergency room at [facility] [place] with a chief complaint of generalized weakness. Patient reported a low-grade temperature at home. Work-up in the emergency room included a CBC which showed an elevated white count at 31,400, platelets are also elevated, sodium was 127, positive nitrites in the urine but 0 white blood cells were noted. Patient lactic acid was 2, CT scan of the head and sinuses showed minimal sinusitis improved over previous exam, chest x-ray shows a lingular infiltrate on the left with effusion. Patient was given IV fluids, he was placed on IV antibiotics, and he was admitted to [place] [address]. The following day, patient's white blood cell count was decreased but still highly elevated, he was seen in consultation by pulmonary medicine and infectious diseases, infectious diseases felt that the patient was receiving adequate coverage with his present antibiotics and continued treatment. Pulmonary medicine recommended follow-up as an outpatient of patient's pneumonia did not resolve. Patient was switched to oral Levaquin and his lab was monitored, white blood cell count decreased on 11/20/2018 to 15.5. Patient was felt to be stable for discharge on that date. On examination he appeared in good health and spirits. Vital signs as documented. Skin warm and dry and without overt rashes. Neck without JVD. Lungs clear. Heart exam notable for regular rhythm, normal sounds and absence of murmurs, rubs or gallops. Abdomen unremarkable and without evidence of organomegaly, masses, or abdominal aortic enlargement. Extremities nonedematous. Neuro: Cranial nerves II through XII are grossly intact, no focal motor deficits were noted, sensation to light touch and pinprick intact. Psych: Patient is alert and oriented x3, he does not appear anxious or depressed On 11/20/2018, patient was seen and examined and felt to be in stable condition for discharge home - Physical Exam Vital Signs Temp Pulse Resp BP Pulse Ox 99.4 F H 116 H 18 129/85 H 97 11/20/18 13:08 11/20/18 13:08 11/20/18 13:08 11/20/18 13:08 11/20/18 13:08 Oxygen Delivery Method Room Air Weight: 82.6 kg Body Mass Index (BMI) 26.1 Intake and Output for Last 24 Hours 11/18/18 11/19/18 11/20/18 23:59 23:59 23:59 Intake Total 5359 / 5359 2610 / 3350 1940 / 1940 Output Total 4400 / 4400 1525 / 2225 700 / 700 Balance 959 / 959 1085 / 1125 1240 / 1240 Microbiology Past 72 Hours 11/16/18 16:20 Gram Stain - Final Sputum, Expectorated/Coughed Respiratory Culture - Final 11/16/18 16:05 Blood Culture - Preliminary Blood Culture (Wb) - Right Forearm No growth in 48 hours. 11/16/18 15:55 Blood Culture - Preliminary Blood Culture (Wb) - Anticubital Right No growth in 48 hours. 11/17/18 19:26 Respiratory Panel (PCR) - Final Mucosa - Nose Laboratory Tests Past 24 Hrs 11/20/18 11/20/18 05:43 05:45 WBC 15.5 H RBC 3.70 L Hgb 10.6 L Hct 32.6 L MCV 88.1 MCH 28.6 MCHC 32.5 RDW Std Deviation 43.8 RDW Coeff of Talia 13.5 Plt Count 537 H MPV 7.8 Immature Gran % (Auto) 1.600 H Neut % (Auto) 83.4 H Lymph % (Auto) 7.0 L [place] % (Auto) 7.7 Eos % (Auto) 0.1 Baso % (Auto) 0.2 Absolute Neuts (auto) 13.0 H Absolute Lymphs (auto) 1.08 Absolute Nucleated RBC 0.00 Nucleated RBC % 0 TSH 3.15 Discharge Activity: Return to Normal Activity Weight Bearing Status: Full weight bearing Home Medications: Medications to take at Discharge Ibuprofen [Motrin] 400 mg PO Q4H PRN PRN tab 11/07/18 Pseudoephedrine [Sudafed] 30 mg PO Q6H PRN PRN tab 11/07/18 Multivitamin [Multivitamins] 1 ea PO DAILY 11/16/18 levoFLOXacin tablet [Levaquin tablet] 750 mg PO DAILY #10 tab 11/20/18 Following Prescrptions Were Given to Patient: levoFLOXacin tablet [Levaquin tablet] 750 mg PO DAILY #10 tab Primary Care Physician: Ayden Portillo DO [Primary Care Provider] - Please follow up with your Primary Care Physician in: in 10 days to 2 weeks-get repeat chest x-ray in 2 weeks Disposition: Home Minutes spent on discharge:: 32 Patient Condition:: Stable Medical Necessity - Tobacco Use Smoking Status: Never smoker Meaningful Use Info Meaningful Use Diagnoses (Choose all that apply): None applicable Code Visit Inpatient E&M: 49765 Disch Hosp
== END 2018-11-20 13:07 | disposition home or self-care (01) | DRG 871 ==
LOC: ED 10:46 → MS3 11-17 07:21
PROVIDERS: Nurse Practitioner Family; Admitting Provider Internal Medicine; Emergency Provider Emergency Medicine; Family Provider Family Medicine; PCP Family Medicine; Visit Provider Internal Medicine
DX: A41.9 Sepsis, unspecified organism (principal); J18.9 Pneumonia, unspecified organism; E87.1 Hypo-osmolality and hyponatremia; R65.20 Severe sepsis without septic shock; R94.5 Abnormal results of liver function studies
CPT/HCPCS: 36415; 70450; 70487; 71046; 80048; 80076; 81001; 83036; 83605; 84443; 84484; 85025; 85027; 87040; 87070; 87205; 87449; 87633; 94640; 94667; 94668; 97802; 99285; J7030; J7040; J7050; Q9967; A4216

== ENCOUNTER 2018-11-25 15:02 | Observation (INO) | payer SELFPAY ==
[2018-11-16 14:17] VITALS: BMI 26.1
[2018-11-25] VITALS (10 sets, daily range): BP systolic 129–143; BP diastolic 75–91; PULSE 104–121; RESP 18–20; TEMP 36.5–37.1; O2SAT 95–98; BMI 21.6; BMI 21.5
--- NOTE | 2018-11-25 15:32 | EKG12_ITS ---
Test Reason : Blood Pressure : / mmHG Vent. Rate : 109 BPM Atrial Rate : 109 BPM P-R Int : 124 ms QRS Dur : 078 ms QT Int : 320 ms P-R-T Axes : 026 018 024 degrees QTc Int : 430 ms Sinus tachycardia Otherwise normal ECG Confirmed by LOLITA SAHU, BRIA ([id number]), editor trade journal JAYDEN WITT ([id number]) on 11/29/2018 1:15:16 PM Referred By: Edy Bunch Confirmed By:BRIA MCHUGH MD
--- NOTE | 2018-11-25 15:32 | CT_ITS ---
STUDY: CTA CHEST REASON FOR EXAM: Male, 52 years old. Pneumonia. Shortness of breath. RADIATION DOSAGE (If Supplied By Facility): CTDIvol = ( 8.84 ) mGy, DLP = ( 312.36 ) mGycm TECHNIQUE: The examination was performed with the intravenous administration of 100ml IV Isovue 370. Post-processing of the angiographic images was performed, with multiplanar reformation and 3D reconstruction. Individualized dose optimization techniques were used for this CT. COMPARISON: None. FINDINGS: There are small bilateral pleural effusions with overlying atelectasis. There is consolidation noted anteriorly in the right middle lobe and posteriorly in the right lower lobe which may be due to atelectasis or infection. There is no pneumothorax. Evaluation for pulmonary embolus is significantly limited by patient motion. There is no central or proximal segmental pulmonary. The remainder of the examination is nondiagnostic. There is no evidence of thoracic aortic aneurysm or dissection. The heart is normal in size. There is a small pericardial effusion. There is no thoracic lymphadenopathy. Images through the upper abdomen demonstrate no significant abnormality. There are no destructive osseous lesions. CT/CTA Chest W/WO Contrast IMPRESSION: Study significantly limited by patient motion. No central or proximal segmental pulmonary embolus. Small bilateral pleural effusions with overlying atelectasis. Consolidation noted anteriorly in the right middle lobe and posteriorly in the right lower lobe which may be due to atelectasis or infection. Small pericardial effusion. Electronically Signed: Beau Marte, at 16:33 EDT Tel , Service support ,
--- NOTE | 2018-11-25 15:34 | ED.VISSUMM ---
- ER Visit Summary Date of Service: 11/25/18 Chief Complaint: Shortness of breath History of Present Illness: The patient is a 52 M presenting with shortness of breath. Patient was recently admitted from November 16 to November 20 for pneumonia. He is on Levaquin. He states since last night he has had increasing shortness of breath. He has pain in his left chest with deep inspiration. He was using an incentive spirometer and states that he now has increasing difficulty. He had a temperature up to 100.2 at home. He has had a nonproductive cough. He denies other complaints. Physical Examination: Vitals are stable. Heart rate 120. Patient is afebrile. Alert no acute distress. HEENT exam is unremarkable. Neck is supple. Lungs are diminished bilaterally. Heart is regular tachycardic Abdomen is soft nontender nondistended. Extremities are unremarkable. No calf tenderness. No edema. Skin is warm and dry. No focal neurologic deficit. Remainder of exam is unremarkable. Emergency Department Course and Treatment: EKG is sinus tachycardia rate of 109. CBC shows white count of 15.4. Chemistries show sodium 130, glucose 150. Troponin is negative. CTA chest shows study significantly limited by patient motion. No central or proximal segmental pulmonary embolus. Small bilateral pleural effusions with overlying atelectasis. Consolidation noted anteriorly in the right middle lobe and posteriorly in the right lower lobe which may be due to atelectasis or infection. Small pericardial effusion. After ambulation his pulse ox was 87% on room air. Discussed with the hospitalist for admission. Disposition: Admission Impression: Dyspnea, hyponatremia, pneumonia This note was generated with [employer] dictation software. It may contain incorrect words, spelling, and punctuation that were not noted in review of the chart prior to signing ED Disposition - Plan for ED Patient: Referrals: Ayden Portilol DO [Primary Care Provider] -
--- NOTE | 2018-11-25 15:35 | NURSING ---
NO OLD EKGS
[2018-11-25 15:59] LABS: Absolute Lymphocyte Count 0.93 X10^3/uL (0.83-4.51); Absolute Neutrophil Count 12.8 X10^3/uL (2.0-7.7); Basophil# 0.06 X10^3/uL; Basophil% 0.4 % (0-1); Eosinophil# 0.01 X10^3/uL; Eosinophils% 0.1 % (0-5); Hematocrit 35.1 % (40-54); Hemoglobin 11.5 g/dL (13.0-16.5); Lymphocyte # 0.93 X10^3/ul (4.0); Mean Corp Hgb Conc 32.8 g/dL (32-36); Mean Corpuscular Hgb 28.7 pg (27.0-32.0); Mean Corpuscular Volume 87.5 fL (80-94); Mean Platelet Vol. 7.5 fl (6.2-12.0); Monocyte# 1.14 X10^3/uL; Monocyte% 7.4 % (0-10); NRBC Flagged by Analyzer 0 % (0-5); Neutrophil # 12.82 X10^3/uL (2.7-7.7); Neutrophil % 83.4 % (47-70); Platelet Count 569 K/mm3 (150-450); RBC Distribution Width CV 13.3 % (11.6-14.6); RBC Distribution Width SD 42.8 fl (35.1-43.9); Red Blood Count 4.01 M/mm3 (4.6-6.2); White Blood Count 15.4 K/mm3 (4.4-11.0)
[2018-11-25 16:33] LABS: Anion Gap 6 (5-15); BUN 15 mg/dL (7-18); BUN/Creat Ratio 13.8 RATIO (10-20); Calcium,Total 9.1 mg/dL (8.5-10.1); Chloride 95 mmol/L (98-107); Creatinine, Serum 1.09 mg/dL (0.70-1.30); EST Glomerular Filtration Rate 76 mL/min (>60); Est Glom Filt Rate - Afr Amer 92 mL/min (>60); Glucose 150 mg/dL (74-106); Potassium 3.7 mmol/L (3.5-5.1); Sodium Level 130 mmol/L (136-145)
--- NOTE | 2018-11-25 18:09 | HP.PCM_ITS ---
Problem List (1) Acute serous pleuritis Status: Acute History of Present Illness Date of Admission: 11/25/18 Chief Complaint: Left sided chest pain The patient is a 52 year old M who was just discharged 4 days ago following an admission for community-acquired pneumonia. Patient has been doing well and has been continuing to improve following his discharge up until today when he developed severe pleuritic left-sided chest pain. Patient is finding it hard to breathe because of this. He denies any fever or chills. His appetite and energy levels are pretty good. Denies any trauma to the same. Patient presented to his primary care physician's office where acute pulmonary embolism was suspected and so patient sent to the emergency department. Here patient has undergone CT pulmonary angiogram which was negative for any pulmonary embolism. It did however show left lower lobe pneumonia and associated mild pleural effusion. [] Past Medical History Allergies No Known Allergies Allergy (Verified 11/25/18 15:04) Home Medications: Ambulatory Orders Medication Instructions Recorded levoFLOXacin tablet [Levaquin 750 mg PO DAILY #10 tab 11/20/18 tablet] Acetaminophen [Tylenol Extra 500 mg PO DAILY PRN PRN 11/25/18 Strength] Diphenhydramine HCl [Benadryl 25 mg PO QHS PRN PRN 11/25/18 Allergy] Ibuprofen 400 mg PO DAILY PRN PRN 11/25/18 Surgical History: noncontributory Psychiatric History: No pertinent psych hx Smoking Status: Never smoker Tobacco Use: Non-smoker - *Family History Maternal History Items: Hypertension Paternal History Items: - - prostate cancer Review of Systems Constitutional: Denies: Anorexia, Chills, Fever, Night Sweats, Malaise, Weakness HEENT: Reports: Sinus Drainage Respiratory: Reports: Pleuritic Pain, Shortness of Breath. Denies: Cough, Hemoptysis Comment: All other systems were reviewed and essentially negative. VTE Information - Inpt Only VTE Present on Admission: No VTE Mechan Device Prophylaxis: None VTE Pharm Prophylaxis ordered?: Yes Patient Problems: Active and Suspected Problems Acute serous pleuritis (Acute) - Physical Exam General: Alert, Oriented x3, Cooperative, Well developed, Well nourished, - - Patient in mild to moderate painful distress. Acutely ill looking. HEENT: Atraumatic, PERRLA Oral: Moist Mucosa Neck: Supple, No JVD, Negative Carotid Bruits Lungs: - - Dull percussion noted in the left lung base. Fine crackles in the left lung base as well. Sub-optimal respiratory effort Abdomen: Bowel Sounds Present, Soft, Non Tender, Non-Distended Extremities: No clubbing, No cyanosis, No edema Skin: No rashes, No breakdown Musculoskeletal: No Tenderness to Palpation of Joints or Extremities Neurological: Cranial nerves II-XII grossly intact, Neuro grossly intact Psych/Mental Status: Normal Affect, Appropriate Vital Signs Temp Pulse Resp BP Pulse Ox 97.7 F L 108 H 18 143/86 H 95 11/25/18 16:14 11/25/18 17:44 11/25/18 17:44 11/25/18 17:44 11/25/18 17:44 Oxygen Delivery Method Room Air Weight: 70.2 kg Body Mass Index (BMI) 21.6 Laboratory Tests Past 24 Hrs 11/25/18 11/25/18 15:55 15:55 WBC 15.4 H RBC 4.01 L Hgb 11.5 L Hct 35.1 L MCV 87.5 MCH 28.7 MCHC 32.8 RDW Std Deviation 42.8 RDW Coeff of Talia 13.3 Plt Count 569 H MPV 7.5 Immature Gran % (Auto) 2.700 H Neut % (Auto) 83.4 H Lymph % (Auto) 6.0 L [place] % (Auto) 7.4 Eos % (Auto) 0.1 Baso % (Auto) 0.4 Absolute Neuts (auto) 12.8 H Absolute Lymphs (auto) 0.93 Nucleated RBC % 0 Sodium 130 L Potassium 3.7 Chloride 95 L Carbon Dioxide 29.0 Anion Gap 6 BUN 15 Creatinine 1.09 Estim Creat Clear Calc 80.50 Est GFR (MDRD) Af Amer 92 Est GFR (MDRD) Non-Af 76 BUN/Creatinine Ratio 13.8 Glucose 150 H Calcium 9.1 Troponin I < 0.015 Assessment/Plan All Active Problems Severe sepsis (Acute) Pneumonia due to suspected gram-negative bacteria (Acute) Acute serous pleuritis (Acute) Acute sinusitis (Resolved) 1. Acute serous pleuritis and pleural effusion complicating left lower lobar pneumonia. This is not indicative of failed treatment clinically. Continue oral Levofloxacin. Will treat with NSAIDs using Toradol IV and upon discharge ibuprofen 800 mg 3 times daily with meals for the next 5 days. If patient stable by tomorrow then he will be discharged back home. Pulmonary embolism was ruled out by CT pulmonary angiogram there will be no further testing for this. 2. Recent community-acquired bacterial lobar pneumonia. On appropriate treatment which will be continued. 3. Mild hyponatremia. Patient states he has been drinking lots of water and so it is more likely due to polydipsia. Patient to reduce free water intake to usual 4. Sinus tachycardia. I suspect this is physiological and secondary to a combination of pain and anxiety about illness. Will place on telemetry and just monitor this. Code Visit OBSV E&M: 51979 Initial observation care L3
[2018-11-25] MEDS: Ketorolac 30 MG/ML Syringe IV (18:56)
[2018-11-26] MEDS: 0.9% NaCl Peripheral Flush Adult/Peds IV (00:08)
[2018-11-26] MEDS: Ketorolac 30 MG/ML Syringe IV ×2 (00:08→06:12)
[2018-11-26 03:56] VITALS: BP 149/89; PULSE 101; RESP 16; TEMP 36.7; O2SAT 96
[2018-11-26 04:00] VITALS: PULSE 102
--- NOTE | 2018-11-26 05:55 | US_ITS ---
STUDY: SUPERFICIAL ULTRASOUND - LEFT PLEURAL CAVITY. REASON FOR EXAM: Male, 52 years old. Possible left pleural effusion. TECHNIQUE: A superficial ultrasound was performed with real-time and static patterson-scale imaging. COMPARISON: None. FINDINGS: Ultrasound of the left hemithorax was performed. There is a tiny left pleural effusion. This is too small for safe thoracentesis. US/Chest IMPRESSION: Small left pleural effusion. 2 small for a thoracentesis. Electronically Signed: Gamal Tapia, at 15:27 EDT , Service support ,
[2018-11-26] MEDS: levoFLOXacin 750 MG Tablet PO (06:12)
--- NOTE | 2018-11-26 07:47 | PCM.PROGNOTE ---
Patient Problems: Active and Suspected Problems Acute serous pleuritis (Acute) - Physical Exam Vital Signs Temp Pulse Resp BP Pulse Ox 98.0 F 102 H 16 149/89 H 96 11/26/18 03:56 11/26/18 04:00 11/26/18 03:56 11/26/18 03:56 11/26/18 03:56 Oxygen Delivery Method Room Air Weight: 154 lb 5.177 oz Body Mass Index (BMI) 21.5 Intake and Output for Last 24 Hours 11/24/18 11/25/18 11/26/18 23:59 23:59 23:59 Intake Total 915 / 915 Balance 915 / 915 Laboratory Tests Past 24 Hrs 11/25/18 11/25/18 15:55 15:55 WBC 15.4 H RBC 4.01 L Hgb 11.5 L Hct 35.1 L MCV 87.5 MCH 28.7 MCHC 32.8 RDW Std Deviation 42.8 RDW Coeff of Talia 13.3 Plt Count 569 H MPV 7.5 Immature Gran % (Auto) 2.700 H Neut % (Auto) 83.4 H Lymph % (Auto) 6.0 L [place] % (Auto) 7.4 Eos % (Auto) 0.1 Baso % (Auto) 0.4 Absolute Neuts (auto) 12.8 H Absolute Lymphs (auto) 0.93 Nucleated RBC % 0 Sodium 130 L Potassium 3.7 Chloride 95 L Carbon Dioxide 29.0 Anion Gap 6 BUN 15 Creatinine 1.09 Estim Creat Clear Calc 80.50 Est GFR (MDRD) Af Amer 92 Est GFR (MDRD) Non-Af 76 BUN/Creatinine Ratio 13.8 Glucose 150 H Calcium 9.1 Troponin I < 0.015 Medical Necessity - Tobacco Use Smoking Status: Never smoker Tobacco Use: Non-smoker Assessment/Plan All Active Problems Severe sepsis (Acute) Pneumonia due to suspected gram-negative bacteria (Acute) Acute serous pleuritis (Acute) Acute sinusitis (Resolved)
[2018-11-26 07:57] VITALS: PULSE 108
[2018-11-26 09:19] LABS: International Normalized Ratio 1.2; Partial Thromboplast Time 31.9 Seconds (24.1-36.2); Prothrombin Time (Protime)PT. 15.4 SECONDS (11.7-14.9)
[2018-11-26 09:23] LABS: Erythrocyte Sedimentation Rate 85 mm/hr (0-20)
[2018-11-26 09:38] LABS: ALB/GLOB Ratio 0.4 RATIO (0.9-2.4); Globulin 5.3 g/dL (2.2-4.2); LDH 141 U/L (87-241); Protein, Total 7.6 g/dL (6.4-8.2)
[2018-11-26 10:30] VITALS: BP 157/91; PULSE 113; RESP 20; TEMP 36.9; O2SAT 97
--- NOTE | 2018-11-26 13:42 | CASEMGMT ---
SW spoke w/our financial dept, pt is listed as self pay. They are willing to come speak w/pt while here if pt is agreeable. SW met w/pt and pt's in room in regard to financial status, as pt is listed as self pay. Pt explains they do have a [employer] insurance fund. SW asked if they would like to meet w/the financial dept here, states they have spoken w/Ros on the phone and asked to speak w/her. SW called Ros, she will come speak w/pt and . No further social service needs. ANDREW Acosta
--- NOTE | 2018-11-26 14:35 | CHAPLAIN ---
Type of Pastoral Visit _x__ Initial Visit ___ Follow-up Visit ___ On-call Visit ___ General Patient Visit ___ Spiritual Assessment ___ Family Conference ___ Bereavement ___ Rapid Response ___ Code Blue ___ Other (describe below) Pastoral Care Referral From _x__ Patient ___ Family ___ Nurse ___ Physician ___ Meat Slicer ___ [employer] ___ Other (describe below) Sacrament/Intervention _x__ Active listening ___ Anointing ___ Yazdanism ___ Bereavement ___ Communion ___ Brittaney exploration ___ ___ Life review _x__ Prayer ___ Reconciliation ___ Sacrament of Sick _x__ Supportive presence ___ Wedding ___ Other (describe below) Pastoral Comments
--- NOTE | 2018-11-26 14:54 | PCM.HP.ID ---
Problem List (1) Pneumonia due to suspected gram-negative bacteria Status: Acute Reason for Consult: pleuritis Consulted by: Dr. Tracy History of Present Illness: The patient is a 52 year old M with recent admit for CAP after a month of outpt abx, he was discharged on levaquin with improvement in sx. Came back to hospital yesterday due to increased L sided chest pain, worse with deep breath. Continued on levaquin, denies fever. Started on antinflammatory, now denies cough or SOB, no pain. Full ROS performed and neg except as noted above. - Medical History Allergies/Adverse Reactions: Allergies No Known Allergies Allergy (Verified 11/25/18 15:04) Home Medications: Ambulatory Orders Medication Instructions Recorded levoFLOXacin tablet [Levaquin 750 mg PO DAILY #10 tab 11/20/18 tablet] Acetaminophen [Tylenol Extra 500 mg PO DAILY PRN PRN 11/25/18 Strength] Diphenhydramine HCl [Benadryl 25 mg PO QHS PRN PRN 11/25/18 Allergy] Ibuprofen 400 mg PO DAILY PRN PRN 11/25/18 - Social History Tobacco Use: non-smoker Vital Signs Temp Pulse Resp BP Pulse Ox 98.5 F 113 H 20 H 157/91 H 97 11/26/18 10:30 11/26/18 10:30 11/26/18 10:30 11/26/18 10:30 11/26/18 10:30 Oxygen Delivery Method Room Air Weight: 70 kg Body Mass Index (BMI) 21.5 Laboratory Tests Past 24 Hrs 11/25/18 11/25/18 11/26/18 15:55 15:55 08:40 WBC 15.4 H RBC 4.01 L Hgb 11.5 L Hct 35.1 L MCV 87.5 MCH 28.7 MCHC 32.8 RDW Std Deviation 42.8 RDW Coeff of Talia 13.3 Plt Count 569 H MPV 7.5 Immature Gran % (Auto) 2.700 H Neut % (Auto) 83.4 H Lymph % (Auto) 6.0 L Heard % (Auto) 7.4 Eos % (Auto) 0.1 Baso % (Auto) 0.4 Absolute Neuts (auto) 12.8 H Absolute Lymphs (auto) 0.93 Nucleated RBC % 0 ESR PT INR APTT Sodium 130 L Potassium 3.7 Chloride 95 L Carbon Dioxide 29.0 Anion Gap 6 BUN 15 Creatinine 1.09 Estim Creat Clear Calc 80.50 Est GFR (MDRD) Af Amer 92 Est GFR (MDRD) Non-Af 76 BUN/Creatinine Ratio 13.8 Glucose 150 H Calcium 9.1 Lactate Dehydrogenase 141 Troponin I < 0.015 C-React Prot Ext Range 90.70 H Total Protein 7.6 Globulin 5.3 H Albumin/Globulin Ratio 0.4 L 11/26/18 11/26/18 08:40 08:40 WBC RBC Hgb Hct MCV MCH MCHC RDW Std Deviation RDW Coeff of Talia Plt Count MPV Immature Gran % (Auto) Neut % (Auto) Lymph % (Auto) Heard % (Auto) Eos % (Auto) Baso % (Auto) Absolute Neuts (auto) Absolute Lymphs (auto) Nucleated RBC % ESR 85 H PT 15.4 H INR 1.2 APTT 31.9 Sodium Potassium Chloride Carbon Dioxide Anion Gap BUN Creatinine Estim Creat Clear Calc Est GFR (MDRD) Af Amer Est GFR (MDRD) Non-Af BUN/Creatinine Ratio Glucose Calcium Lactate Dehydrogenase Troponin I C-React Prot Ext Range Total Protein Globulin Albumin/Globulin Ratio - Other Studies Radiology: [] reviewed Other Studies: [] Route of nutrition/ use of supplements: [] Nutritional Intake: [] IV Site: [] Lara Catheter: [] - Physical Exam General: Alert, Oriented x3, Cooperative, No apparent distress HEENT: Atraumatic, PERRLA, EOMI Neck: Supple, No Nodes Lungs: Rales - in L base Cardiovascular: Regular rate, Regular Rhythm Abdomen: Soft, Non Tender, Non-Distended Extremities: No edema Skin: No rashes IV Site: Peripheral, without redness Musculoskeletal: No Tenderness to Palpation of Joints or Extremities Neurological: Cranial nerves II-XII grossly intact - Assessment/Plan Antibiotics: [] Assessment/Plan: [] Active and Suspected Problems Acute serous pleuritis (Acute) CAP with pleuritic chest pain, improved, continued on levaquin. U/s to eval small effusion is pending. Will follow, thank you, d/w Dr. Tracy
[2018-11-26 14:58] VITALS: PULSE 115
[2018-11-26 16:30] VITALS: BP 136/80; PULSE 112; RESP 18; TEMP 37.7; O2SAT 97
--- NOTE | 2018-11-26 16:39 | DCINST_ITS ---
- Discharge Diagnoses Current Active Problems: Current Active and Chronic Problems Acute serous pleuritis (Acute) You will use the following diet at home:: No restrictions Discharge Activity: Return to Normal Activity Call your doctor if you observe: Fever of 101 or Higher, Shortness of breath, Dizziness, Fainting spells, Chest pain Allergies/Adverse Reactions: Allergies No Known Allergies Allergy (Verified 11/25/18 15:04) Medications to take at Discharge levoFLOXacin tablet [Levaquin tablet] 750 mg PO DAILY #10 tab 11/20/18 Acetaminophen [Tylenol] 500 mg PO DAILY PRN PRN 11/25/18 Diphenhydramine HCl [Benadryl Allergy] 25 mg PO QHS PRN PRN 11/25/18 Ibuprofen 400 mg PO DAILY PRN PRN 11/25/18 Primary Care Physician: Ayden Portillo DO [Primary Care Provider] - Please follow up with your Primary Care Physician in: 1 Week Test Results: Test results from this visit will be discussed in further detail at your follow- up appointment, if applicable. Proposed Discharge Date: 11/26/18
--- NOTE | 2018-11-26 16:40 | PCM.DC.SUM ---
Discharge Date and Diagnosis Date of Admission: 11/25/18 Date of Discharge: 11/26/18 - Primary Discharge Diagnosis Active and Suspected Problems 1. Community-acquired pneumonia with pleuritic chest pain 2. Hypovolemic hyponatremia 3. Normocytic anemia Hospital Course and Treatment Imaging Results: Diagnostic Data Chest CTA 11/25/18 15:32 IMPRESSION: Study significantly limited by patient motion. No central or proximal segmental pulmonary embolus. Small bilateral pleural effusions with overlying atelectasis. Consolidation noted anteriorly in the right middle lobe and posteriorly in the right lower lobe which may be due to atelectasis or infection. Small pericardial effusion. Electronically Signed: Beau Marte, at 16:33 EDT Tel , Service support , Chest Ultrasound 11/26/18 05:55 IMPRESSION: Small left pleural effusion. 2 small for a thoracentesis. Electronically Signed: Gamal Tapia, at 15:27 EDT , Service support , Dr. Lemons- JORJE Operations: None Procedures: None Summary of Care Provided: The patient is a 52 year old M admitted 11/25/2017 due to left-sided chest pain. 1. Community-acquired pneumonia with pleuritic chest pain-CT at admission showed small bilateral pleural effusions. Consolidation in the right middle lobe and right lower lobe, atelectasis versus infection. Patient was sent for thoracentesis however small left pleural effusion was too small for fluid removal. Infectious disease consulted given recent treatment for pneumonia and extensive course of antibiotics. ID feels current presentation consistent with pleuritic chest pain due to community acquired pneumonia and patient will continue previously prescribed Levaquin regimen, he was recently prescribed 750 mg daily for total of 10 days. Continue NSAIDs PRN for pain. Follow-up with primary care provider in 1 week. 2. Hypovolemic hyponatremia- stable. 3. Normocytic anemia- outpatient follow up. Patient seen and examined prior to discharge. Physical assessment as noted above. Patient is stable for discharge with follow up recommendations as noted above. This patient was seen by DENNYS Coughlin under the supervision of Dr. Tracy. - Physical Exam General: Alert, Oriented x3, Cooperative HEENT: Atraumatic, PERRLA, EOMI, Normocephalic Neck: Supple, No JVD, Negative Carotid Bruits Lungs: Diminished, - - Few crackles left base Cardiovascular: Regular Rhythm, Normal S1, Normal S2, No murmurs, Tachycardic - Mild Abdomen: Bowel Sounds Present, Soft, Non Tender, Non-Distended Extremities: No clubbing, No cyanosis, No edema, Capillary Refill Less than 3 Seconds Skin: No rashes, No breakdown Musculoskeletal: No Tenderness to Palpation of Joints or Extremities Neurological: Cranial nerves II-XII grossly intact, Neuro grossly intact Psych/Mental Status: Normal Affect, Appropriate Vital Signs Temp Pulse Resp BP Pulse Ox 99.8 F H 112 H 18 136/80 H 97 11/26/18 16:30 11/26/18 16:30 11/26/18 16:30 11/26/18 16:30 11/26/18 16:30 Oxygen Delivery Method Room Air Weight: 154 lb 5.177 oz Body Mass Index (BMI) 21.5 Intake and Output for Last 24 Hours 11/24/18 11/25/18 11/26/18 23:59 23:59 23:59 Intake Total 915 / 915 500 / 500 Balance 915 / 915 500 / 500 Laboratory Tests Past 24 Hrs 11/26/18 11/26/18 11/26/18 08:40 08:40 08:40 ESR 85 H PT 15.4 H INR 1.2 APTT 31.9 Lactate Dehydrogenase 141 C-React Prot Ext Range 90.70 H Total Protein 7.6 Globulin 5.3 H Albumin/Globulin Ratio 0.4 L Discharge Diet: No Restrictions Discharge Activity: Return to Normal Activity Call your doctor if you observe: Fever of 101 or Higher, Shortness of breath, Dizziness, Fainting spells, Chest pain Home Medications: Medications to take at Discharge Acetaminophen [Tylenol] 500 mg PO DAILY PRN PRN 11/25/18 Diphenhydramine HCl [Benadryl Allergy] 25 mg PO QHS PRN PRN 11/25/18 Ibuprofen 400 mg PO DAILY PRN PRN 11/25/18 levoFLOXacin tablet [Levaquin tablet] 750 mg PO DAILY 11/26/18 Primary Care Physician: Ayden Portillo DO [Primary Care Provider] - Please follow up with your Primary Care Physician in: 1 Week Disposition: Home Minutes spent on discharge:: 35 Patient Condition:: Stable Medical Necessity - Tobacco Use Smoking Status: Never smoker Tobacco Use: Non-smoker Meaningful Use Info Meaningful Use Diagnoses (Choose all that apply): None applicable
== END 2018-11-26 17:28 | disposition home or self-care (01) ==
LOC: ED 15:20 → PCU 17:47
PROVIDERS: Admitting Provider Internal Medicine; Emergency Provider Emergency Medicine; Family Provider Family Medicine; PCP Family Medicine; Referring Provider Internal Medicine; Visit Provider Internal Medicine
DX: J18.9 Pneumonia, unspecified organism (principal); E87.1 Hypo-osmolality and hyponatremia; D64.9 Anemia, unspecified; E86.1 Hypovolemia; R00.0 Tachycardia, unspecified; Z79.899 Other long term (current) drug therapy; J90 Pleural effusion, not elsewhere classified
CPT/HCPCS: 36415; 71275; 76604; 80048; 83615; 84156; 84484; 85025; 85610; 85652; 85730; 86140; 93005; 96361; 96374; 96376; 97802; 99218; 99285; J7030; J7040; Q9967; A4216; G0378